=== PATIENT | female | born 1960 | race Caucasian/White ===

== ENCOUNTER → 2019-06-03 | Day surgery (SDC) | payer OTHER ==
[~2019-06-03] MED LIST: BACITRACIN 50,000 UNIT VIAL ONE; BUPIVACAINE HCL 0.5% INJ 30 ML VIAL INJ ONE; CEFAZOLIN SOD 1 GM/NS 50ML 50 ML IV ONE; CEPHALEXIN500 MG PO; CYMBALTA30 MG PO; DEXAMETHASONE SOD PHOS INJ 4 MG/ML VIAL ONE; EPHEDRINE SULFATE INJ 50 MG/10 ML SYR ONE; FENTANYL CITRATE/PF 100MCG/2 ML INJ ONE; GABAPENTIN100 MG PO; HUMULIN R100 UNIT/2 SC; HYDROMORPHONE 2MG/ML 2 MG/ML ML ONE; LIDOCAINE HCL 2% LOCAL INJ 5 ML SDV VIAL INJ ONE; LYRICA75 MG PO; MAGNESIUM OXID400 MG PO; MIDAZOLAM HCL 2 MG/2 ML VIAL ONE; MORPHINE SULFATE INJ 4 MG/ML INJ 1ML ONE; MULTI-VITAMIN1 EACH PO; NAPROXEN500 MG PO; NORCO 10-325 T1 EACH PO; NOVOLIN N100 UNIT/1 SC; OCUVITE TABLET1 EAC1 PO; ONDANSETRON HCL INJ 2MG/ML 2ML 2 MG/ML VIAL ONE; PROPOFOL IV EMULSION 10 MG/ML 20 ML VIAL ONE; SEVOFLURANE INHAL SOLN 250 ML PEN BTL ONE; SOMA350 MG PO; TRAZODONE HCL50 MG PO; VITAMIN D31000 UNI1 PO
--- OUTSIDE RECORDS SUMMARY | 2019-06-03 05:29 | XMS REPORT ---
Author Author [facility] Address Unknown Phone Unavailable Care Team Providers Care Engineering Laboratory Technician Name Role Phone Unavailable Unavailable Payers Payer Name Policy Type Policy Number Effective Date Expiration Date Problems This patient has no known problems. Allergies, Adverse Reactions, Alerts Allergy Name Allergy Type Status Severity Reaction(s) Onset Date Inactive Date Treating Clinician Comments Sulfa (Sulfonamide Antibiotics) DA Active U 2017-01-18 00:00:00 erythromycin base DA Active U 2017-01-18 00:00:00 aripiprazole DA Active U 2017-01-18 00:00:00 Medications This patient has no known medications. Encounters Start Date/Time End Date/Time Encounter Type Admission Type Attending Clinicians Care Facility Care Department Encounter ID 2019-03-05 00:00:00 2019-03-05 00:00:00 Outpatient [facility] [id number] 2019-01-26 00:00:00 2019-01-26 00:00:00 Outpatient [facility] [id number] 2019-01-14 00:00:00 2019-01-14 00:00:00 Outpatient [facility] [id number] 2018-12-30 14:38:10 2018-12-30 14:38:10 Outpatient [facility] [id number] 2018-12-25 13:59:22 2018-12-25 13:59:22 Outpatient [facility] [id number] 2018-12-18 00:00:00 2018-12-18 00:00:00 Outpatient [facility] [id number] 2018-12-16 15:39:27 2018-12-16 15:39:27 Outpatient [facility] [id number] 2018-12-16 14:11:49 2018-12-16 14:11:49 Outpatient [facility] [id number] 2018-12-01 14:39:56 2018-12-01 14:39:56 Outpatient [facility] [id number] 2018-11-13 13:39:08 2018-11-13 13:39:08 Outpatient [facility] [id number] 2018-10-28 13:35:57 2018-10-28 13:35:57 Outpatient [facility] [id number] 2018-10-24 00:00:00 2018-10-24 00:00:00 Outpatient [facility] [id number] 2018-10-21 15:56:16 2018-10-21 15:56:16 Outpatient [facility] [id number] 2018-09-19 00:00:00 2018-09-19 00:00:00 Outpatient [facility] [id number] 2018-09-04 13:39:03 2018-09-04 13:39:03 Outpatient [facility] [id number] 2018-09-04 10:58:33 2018-09-04 10:58:33 Outpatient [facility] [id number] 2018-08-08 00:00:00 2018-08-08 00:00:00 Outpatient [facility] [id number] 2018-08-08 00:00:00 2018-08-08 00:00:00 Outpatient [facility] [id number] 2018-08-04 10:48:12 2018-08-04 10:48:12 Outpatient [facility] [id number] 2018-07-31 14:04:12 2018-07-31 14:04:12 Outpatient [facility] [id number] 2018-07-30 00:00:00 2018-07-30 00:00:00 Outpatient [facility] [id number] 2018-07-23 00:00:00 2018-07-23 00:00:00 Outpatient [facility] [id number] 2018-07-15 00:00:00 2018-07-15 00:00:00 Outpatient [facility] [id number] 2018-07-03 00:00:00 2018-07-03 00:00:00 Outpatient [facility] [id number] 2018-06-23 15:21:44 2018-06-23 15:21:44 Outpatient [facility] [id number] 2018-06-23 13:57:00 2018-06-23 13:57:00 Outpatient [facility] [id number] 2018-06-19 13:13:16 2018-06-19 13:13:16 Outpatient [facility] [id number] 2018-06-04 00:00:00 2018-06-04 00:00:00 Outpatient [facility] [id number] 2018-05-25 00:00:00 2018-05-25 00:00:00 Outpatient [facility] [id number] 2018-05-21 00:00:00 2018-05-21 00:00:00 Outpatient [facility] [id number] 2018-05-20 10:33:25 2018-05-20 10:33:25 Outpatient [facility] [id number] 2018-05-20 00:00:00 2018-05-20 00:00:00 Outpatient [facility] [id number] 2018-05-20 00:00:00 2018-05-20 00:00:00 Outpatient [facility] [id number] 2018-05-20 00:00:00 2018-05-20 00:00:00 Outpatient [facility] [id number] 2018-04-23 00:00:00 2018-04-23 00:00:00 Outpatient [facility] [id number] 2018-04-22 10:28:04 2018-04-22 10:28:04 Outpatient [facility] [id number] 2018-04-22 09:25:05 2018-04-22 09:25:05 Outpatient [facility] [id number] 2018-03-31 00:00:00 2018-03-31 00:00:00 Outpatient [facility] [id number] 2018-03-27 00:00:00 2018-03-27 00:00:00 Outpatient [facility] [id number] 2018-03-27 00:00:00 2018-03-27 00:00:00 Outpatient [facility] [id number] 2018-03-20 00:00:00 2018-03-20 00:00:00 Outpatient [facility] [id number] 2018-03-10 00:00:00 2018-03-10 00:00:00 Outpatient [facility] [id number] 2018-03-10 00:00:00 2018-03-10 00:00:00 Outpatient [facility] [id number] 2018-02-26 15:33:17 2018-02-26 15:33:17 Outpatient [facility] [id number] 2018-02-20 15:28:17 2018-02-20 15:28:17 Outpatient [facility] [id number] 2018-02-13 00:00:00 2018-02-13 00:00:00 Outpatient [facility] [id number] 2018-01-06 00:00:00 2018-01-06 00:00:00 Outpatient [facility] [id number] 2018-01-02 12:58:55 2018-01-02 12:58:55 Outpatient [facility] [id number] 2018-01-02 11:05:28 2018-01-02 11:05:28 Outpatient [facility] [id number] 2017-12-27 00:00:00 2017-12-27 00:00:00 Outpatient [facility] [id number] 2017-12-26 00:00:00 2017-12-26 00:00:00 Outpatient [facility] [id number] 2017-12-25 10:14:01 2017-12-25 10:14:01 Outpatient [facility] [id number] 2017-12-23 00:00:00 2017-12-23 00:00:00 Outpatient [facility] [id number] 2017-12-23 00:00:00 2017-12-23 00:00:00 Outpatient [facility] [id number] 2017-12-16 15:29:25 2017-12-16 15:29:25 Outpatient [facility] [id number] 2017-12-16 14:28:50 2017-12-16 14:28:50 Outpatient [facility] [id number] 2017-12-03 00:00:00 2017-12-03 00:00:00 Outpatient [facility] [id number] 2017-12-03 00:00:00 2017-12-03 00:00:00 Outpatient [facility] [id number] 2017-12-03 00:00:00 2017-12-03 00:00:00 Outpatient [facility] [id number] 2017-11-20 00:00:00 2017-11-20 00:00:00 Outpatient [facility] [id number] 2017-11-13 00:00:00 2017-11-13 00:00:00 Outpatient [facility] [id number] 2017-11-11 00:00:00 2017-11-11 00:00:00 Outpatient [facility] [id number] 2017-11-05 14:08:36 2017-11-05 14:08:36 Outpatient [facility] [id number] 2017-10-25 13:51:04 2017-10-25 13:51:04 Outpatient [facility] [id number] 2017-10-25 00:00:00 2017-10-25 00:00:00 Outpatient [facility] [id number] 2017-10-18 00:00:00 2017-10-18 00:00:00 Outpatient [facility] [id number] 2017-10-17 00:00:00 2017-10-17 00:00:00 Outpatient [facility] [id number] 2017-10-17 00:00:00 2017-10-17 00:00:00 Outpatient [facility] [id number] 2017-10-17 00:00:00 2017-10-17 00:00:00 Outpatient [facility] [id number] 2017-10-11 11:53:22 2017-10-11 11:53:22 Outpatient [facility] [id number] 2017-10-11 10:27:03 2017-10-11 10:27:03 Outpatient [facility] [id number] 2017-07-18 00:00:00 2017-07-18 00:00:00 Outpatient [facility] [id number] 2017-04-25 09:21:52 2017-04-25 09:21:52 Outpatient [facility] [id number] Results Test Description Test Time Test Comments Text Results Atomic Results Result Comments GLUBED 2018-12-06 00:30:00 GLUBED (test code=GLUBED) 106 mg/dL 74-106 Performed by certified veneer jointer operator at [facility] URINALYSIS [id number] 00:22:00* Test Item Value Reference Range Comments UA COLOR (test code=COLU) LIGHT YELLOW YELLOW UA APPEARANCE (test code=APPU) CLEAR CLEAR UA GLUCOSE DIPSTICK (test code=DGLUU) NEGATIVE mg/dL NEGATIVE UA BILIRUBIN DIPSTICK (test code=BILU) NEGATIVE mg/dL NEGATIVE UA KETONE DIPSTICK (test code=KETU) Negative mg/dL NEGATIVE UA SPECIFIC GRAVITY (test code=SGU) 1.011 1.001-1.035 UA BLOOD DIPSTICK (test code=GAUTAM) Negative NEGATIVE UA PH DIPSTICK (test code=CHAPITO) 6.0 5.0-8.0 UA PROTEIN DIPSTICK (test code=PROU) Negative mg/dL NEGATIVE UA UROBILINIOGEN DIPSTICK (test code=URO) NEGATIVE mg/dL NEGATIVE UA NITRITE DIPSTICK (test code=ELIDIA) NEGATIVE NEGATIVE UA LEUKOCYTE ESTERASE W REFLEX (test code=LEUUR) NEGATIVE NEGATIVE UA WBC (test code=WBCU) 0-5 #/HPF 0-5 UA RBC (test code=RBCU) 0-2 #/HPF 0-5 UA EPITHELIAL CELLS (test code=EPIU) FEW per HPF FEW UA MUCUS (test code=MUCU) FEW #/LPF FEW Urine Source? Clean CatchBASIC METABOLIC [id number] 00:18:00* Test Item Value Reference Range Comments SODIUM (test code=NA) 138 mmol/L 136-145 POTASSIUM (test code=K) 3.8 mmol/L 3.5-5.1 CHLORIDE (test code=CL) 103.0 mmol/L 98-107 CARBON DIOXIDE (test code=CO2) 26.0 mmol/L 21-32 ANION GAP (test code=GAP) 12.8 10-20 GLUCOSE (test code=GLU) 168 mg/dL 74-106 BLOOD UREA NITROGEN (test code=BUN) 17 mg/dL 7-18 GLOMERULAR FILTRATION RATE (test code=GFR) 46 mL/min >=60 Estimated GFR by using Modified MDRD formula.Chronic kidney disease is defined as either kidney damageor GFR <60 mL/min/1.73 m2 for >3 months. CREATININE (test code=CREAT) 1.20 mg/dL 0.55-1.02 Note change in reference range due to change in reagent. BUN/CREATININE RATIO (test code=BUN/CREA) 14.4 10-20 CALCIUM (test code=CA) 9.8 mg/dL 8.5-10.1 HEPATIC FUNCTION [id number] 00:18:00* Test Item Value Reference Range Comments TOTAL PROTEIN (test code=PROT) 8.6 gram/dL 6.4-8.2 ALBUMIN (test code=ALB) 3.6 g/dL 3.4-5.0 GLOBULIN (test code=GLOB) 5.0 gram/dL 2.7-4.2 ALBUMIN/GLOBULIN RATIO (test code=A/G) 0.7 0.75-1.50 BILIRUBIN TOTAL (test code=BILT) 0.30 mg/dL 0.0-1.0 BILIRUBIN DIRECT (test code=BILD) 0.14 mg/dL 0.0-0.20 SGOT/AST (test code=AST) 36 IUnit/L 15-37 SGPT/ALT (test code=ALT) 52 IUnit/L 12-78 ALKALINE PHOSPHATASE TOTAL (test code=ALKP) 127 IUnit/L 45-117 Note change in reference range due to change in reagent. CREATINE KINASE (CK)2018-12-06 00:18:00* Test Item Value Reference Range Comments CREATINE KINASE (CK) (test code=CK) 104 IUnit/L 26-208 [id number] 00:18:00* Test Item Value Reference Range Comments TROPONIN-I (test code=TROPI) <0.015 ng/mL 0-0.045 BASIC METABOLIC [id number] 23:53:00* Test Item Value Reference Range Comments SODIUM (test code=NA) 138 mmol/L 136-145 POTASSIUM (test code=K) 3.8 mmol/L 3.5-5.1 CHLORIDE (test code=CL) 103.0 mmol/L 98-107 CARBON DIOXIDE (test code=CO2) mmol/L 21-32 ANION GAP (test code=GAP) 10-20 GLUCOSE (test code=GLU) mg/dL 74-106 BLOOD UREA NITROGEN (test code=BUN) mg/dL 7-18 GLOMERULAR FILTRATION RATE (test code=GFR) mL/min >=60 CREATININE (test code=CREAT) mg/dL 0.55-1.02 BUN/CREATININE RATIO (test code=BUN/CREA) 10-20 CALCIUM (test code=CA) mg/dL 8.5-10.1 HEPATIC FUNCTION [id number] 23:53:00* Test Item Value Reference Range Comments TOTAL PROTEIN (test code=PROT) gram/dL 6.4-8.2 ALBUMIN (test code=ALB) g/dL 3.4-5.0 GLOBULIN (test code=GLOB) gram/dL 2.7-4.2 ALBUMIN/GLOBULIN RATIO (test code=A/G) 0.75-1.50 BILIRUBIN TOTAL (test code=BILT) mg/dL 0.0-1.0 BILIRUBIN DIRECT (test code=BILD) mg/dL 0.0-0.20 SGOT/AST (test code=AST) IUnit/L 15-37 SGPT/ALT (test code=ALT) IUnit/L 12-78 ALKALINE PHOSPHATASE TOTAL (test code=ALKP) IUnit/L 45-117 CREATINE KINASE (CK)2018-12-05 23:53:00* Test Item Value Reference Range Comments CREATINE KINASE (CK) (test code=CK) IUnit/L 26-208 [id number] 23:53:00* Test Item Value Reference Range Comments TROPONIN-I (test code=TROPI) ng/mL 0-0.045 PROTHROMBIN [id number] 23:52:00* Test Item Value Reference Range Comments PROTHROMBIN TIME PATIENT (test code=PTP) 10.2 seconds 9.0-14.0 INTERNATIONAL NORMAL RATIO (test code=INR) 0.9 0.8-1.2 The therapeutic range for oral anticoagulant therapy formost indications is an international normalized ratio (INR)of between 2.0 and 3.0. The recommended therapeutic INRrange for various clinical situations is listed below: Clinical Situation INR range Pulmonary e mbolism treatment (2.0-3.0)Venous thrombosis treatmentVenous thrombosis prophylaxis (high risk surgery)Prevention of systemic embolism from: Acute myocardial infarction Valvular heart disease Atrial fibrillation Mechanical prosthetic heart valves (2.5-3.5) IS PATIENT ON ANTICOAGULANTS? NTHROMBOPLASTIN TIME [id number] 23:52:00* Test Item Value Reference Range Comments THROMBOPLASTIN TIME PARTIAL (test code=PTT) 29.2 seconds 25.0-36.5 IS PATIENT ON ANTICOAGULANTS? NCBC W/AUTO [id number] 23:42:00* Test Item Value Reference Range Comments WHITE BLOOD CELL (test code=WBC) 8.8 K/mm3 4.5-12.5 RED BLOOD CELL (test code=RBC) 4.82 mill/mm3 3.7-5.2 HEMOGLOBIN (test code=HGB) 14.3 gram/dL 11.5-15.5 HEMATOCRIT (test code=HCT) 44.6 % 36.0-46.0 MEAN CELL VOLUME (test code=MCV) 92.5 fL 80-98 MEAN CELL HGB (test code=MCH) 29.7 picogram 27.0-33.0 MEAN CELL HGB CONCETRATION (test code=MCHC) 32.1 gram/dL 33.0-36.0 RED CELL DISTRIBUTION WIDTH (test code=RDW) 13.6 % 11.6-16.2 RED CELL DISTRIBUTION WIDTH SD (test code=RDW-SD) 45.9 fL 37.0-51.0 PLATELET COUNT (test code=PLT) 263 K/mm3 150-450 MEAN PLATELET VOLUME (test code=MPV) 9.5 fL 6.7-11.0 NEUTROPHIL % (test code=NT%) 67.7 % 39.0-69.0 IMMATURE GRANULOCYTE % (test code=IG%) 0.3 % 0.0-5.0 LYMPHOCYTE % (test code=LY%) 24.6 % 25.0-55.0 MONOCYTE % (test code=MO%) 5.8 % 0.0-10.0 EOSINOPHIL % (test code=EO%) 1.1 % 0.0-5.0 BASOPHIL % (test code=BA%) 0.5 % 0.0-1.0 NUCLEATED RBC % (test code=NRBC%) 0.0 % 0-0 NEUTROPHIL # (test code=NT#) 5.97 K/mm3 1.8-7.7 IMMATURE GRANULOCYTE # (test code=IG#) 0.03 x10 3/uL 0-0.03 LYMPHOCYTE # (test code=LY#) 2.17 K/mm3 1.0-5.0 MONOCYTE # (test code=MO#) 0.51 K/mm3 0-0.8 EOSINOPHIL # (test code=EO#) 0.10 K/mm3 0.0-0.5 BASOPHIL # (test code=BA#) 0.04 K/mm3 0.0-0.2 NUCLEATED RBC # (test code=NRBC#) 0.00 K/mm3 0.0-0.1 CBC W/AUTO [id number] 23:41:00* Test Item Value Reference Range Comments WHITE BLOOD CELL (test code=WBC) K/mm3 4.5-12.5 RED BLOOD CELL (test code=RBC) mill/mm3 3.7-5.2 HEMOGLOBIN (test code=HGB) 14.3 gram/dL 11.5-15.5 HEMATOCRIT (test code=HCT) 44.6 % 36.0-46.0 MEAN CELL VOLUME (test code=MCV) fL 80-98 MEAN CELL HGB (test code=MCH) picogram 27.0-33.0 MEAN CELL HGB CONCETRATION (test code=MCHC) gram/dL 33.0-36.0 RED CELL DISTRIBUTION WIDTH (test code=RDW) % 11.6-16.2 RED CELL DISTRIBUTION WIDTH SD (test code=RDW-SD) fL 37.0-51.0 PLATELET COUNT (test code=PLT) K/mm3 150-450 MEAN PLATELET VOLUME (test code=MPV) fL 6.7-11.0 NEUTROPHIL % (test code=NT%) % 39.0-69.0 IMMATURE GRANULOCYTE % (test code=IG%) % 0.0-5.0 LYMPHOCYTE % (test code=LY%) % 25.0-55.0 MONOCYTE % (test code=MO%) % 0.0-10.0 EOSINOPHIL % (test code=EO%) % 0.0-5.0 BASOPHIL % (test code=BA%) % 0.0-1.0 NEUTROPHIL # (test code=NT#) K/mm3 1.8-7.7 LYMPHOCYTE # (test code=LY#) K/mm3 1.0-5.0 MONOCYTE # (test code=MO#) K/mm3 0-0.8 EOSINOPHIL # (test code=EO#) K/mm3 0.0-0.5 BASOPHIL # (test code=BA#) K/mm3 0.0-0.2
--- NOTE | 2019-06-03 06:38 | Diagnostic Imaging Report ---
EXAMINATION: CHEST 2 VIEWS INDICATION: Preop, foot surgery ^PRE-OP #4 ^[id number] ^[id number] COMPARISON: None FINDINGS: PA and lateral views TUBES and LINES: None. LUNGS: Mild hyperinflation and upper lung zone lucencies suggestive of emphysema. There is no evidence of pneumonia or pulmonary edema. PLEURA: No pleural effusion or pneumothorax. HEART AND MEDIASTINUM: The cardiomediastinal silhouette is unremarkable.. BONES AND SOFT TISSUES: Degenerative changes of the spine. No focal osseous lesions. Soft tissues are unremarkable. UPPER ABDOMEN: No free air under the diaphragm. IMPRESSION: COPD/emphysema. No acute cardiopulmonary process. Signed by: Dr. Aruna Davidson MD on 06/03/2019 6:35 AM
[2019-06-03 06:41] LABS: ANION GAP 11.2 mmol/L (8-16); CALCIUM 9.4 mg/dL (8.4-10.2); POTASSIUM 4.2 mmol/L (3.5-5.1)
[2019-06-03 10:05] VITALS: BP 131/78
--- NOTE | 2019-06-11 13:21 | Operative Report ---
DATE OF PROCEDURE: 06/03/2019 SURGEON: Micaela Luna DPM PREOPERATIVE DIAGNOSES: Left hallux rigidus status post failed arthroplasty with implant, left 2nd digit hammertoe, left 3rd digit hammertoe. POSTOPERATIVE DIAGNOSES: Left hallux rigidus status post failed arthroplasty with implant, left 2nd digit hammertoe, left 3rd digit hammertoe. PLANNED PROCEDURES: 1. Left 1st metatarsophalangeal joint arthrodesis with graft implantation. 2. Left 2nd digit arthroplasty, left 3rd digit tenotomy and capsulotomy. PRODUCTION MATERIAL COORDINATOR: Erin Skinner DPM ([place]). ANESTHESIA: General with a postoperative block consisting of 15 mL of 0.5% Marcaine plain. HEMOSTASIS: Pneumatic thigh tourniquet set at 350 mmHg for a total time of approximately 90 minutes. MATERIALS: One [employer] medium cadaveric tricortical wedge, Augment injectable kit 3 mL, one medium 10 degree MTP fusion plate left, one 0.064 K-wire, one 0.045 K-wire, four 2.7 combination locking and nonlocking screws measuring between 12 and 16 mm, 2-0 Vicryl, 3-0 Vicryl, and 4-0 Prolene. ESTIMATED BLOOD LOSS: Less than 10 mL. PATHOLOGY: None. PROCEDURE NOTE: The patient was seen in the preoperative waiting room, where the correct procedure and site was identified. The patient was brought to the operating room and placed on the operating table in a supine position. General anesthesia was initiated. At this time, a well-padded pneumatic tourniquet was placed about the patient's left thigh. The left foot, ankle, and leg was then scrubbed, prepped, and draped in the usual aseptic manner. The left foot, ankle, and leg was exsanguinated with an Esmarch bandage and a pneumatic thigh tourniquet was inflated to 350 mmHg for a total time approximately 90 minutes. Attention was directed to the dorsal aspect of the patient's left 1st metatarsophalangeal joint, where a dorsal dislocation and shortening was noted at the 1st metatarsophalangeal joint with medial deviation at the 2nd and 3rd digit of metatarsophalangeal joint. Utilizing a #15 blade, a 5 cm linear incision made directly over the midshaft 1st metatarsal extending over to the interphalangeal joint. The incision was carried to subcutaneous tissue them from deep or underling structures. All vital neurovascular structures were identified, retracted medially and laterally, and all bleeders were cauterized or ligated as deemed necessary. The incision was carried down to the level of the previously placed implant with grommets and previous implant were noted. Utilizing intraoperative fluoroscopy, they were identified. Utilizing a [place] elevator and hemostat, the grommets and the previously placed implant was removed and passed off to the back table. The wound was then copiously irrigated with sterile saline. Next, measurements were taken of the deficit and the tricortical wedge was cut appropriately and soaked in Augment. The bone edges were trimmed and debrided as well as subchondral drilling was performed. The previous deficits were filled with Augment paste. Next, a contracture was noted at the interphalangeal joint once the MPJ was reduced and the decision was made to perform an IPJ fusion as well. At this time utilizing a sagittal saw, the base of the distal phalanx as well as the head of the proximal phalanx were resected and passed off to the back table and reduced. Next, utilizing a 0.62 K-wire in a retrograde fashion was drilled through the distal phalanx and back into the proximal phalanx. The appropriately cut and sized graft was placed into the metatarsophalangeal joint deficit. The pin was placed through the graft into the 1st metatarsal head and confirmed to be in good position in intraoperative fluoroscopy. Next, the 10 degree revisional metatarsophalangeal joint was placed over the remainder of the 1st metatarsal, the graft, and the proximal phalanx. It was temporally fixated and confirmed to be in correct position via intraoperative fluoroscopy. Four combination locking and nonlocking screws were placed, 2.7 mm between 12 and 16 mm. The fixation site was stable. The wound was then copiously irrigated with sterile saline. Capsule and deep tissue were reapproximated with a combination of 2-0 and 3-0 Vicryl. It should be noted that due to longstanding deformity with dislocation, the skin had remodeled and that the closure was tight. So the closure was done with simple interrupted sutures with 3-0 nylon. Next, attention was directed to the 2nd digit, where a 1.5 cm incision was made directly over the proximal interphalangeal joint. The incision was carried through subcutaneous tissue them from deep or underlying structures. All vital neurovascular structures were identified and retracted medially and laterally, and all bleeders were cauterized or ligated as deemed necessary. The head of the proximal phalanx was resected and passed off to the back table as well as the base of the middle phalanx. A second stab incision was made at the 2nd metatarsophalangeal joint, where tenotomy and capsulotomy was performed. The K-wire was drilled through the middle and distal phalanx back to the proximal phalanx into the metatarsal head confirmed via intraoperative fluoroscopy. Next, utilizing a stab incision, a tenotomy and capsulotomy was performed at the level of the 3rd metatarsophalangeal joint and was noted to be in good anatomic reduction. Both the K-wires were bent and capped. The left 2nd digit incision was copiously irrigated with sterile saline. Deep tissues were reapproximated with 3-0 Vicryl. Skin was closed using simple interrupted sutures with a combination of 3-0 nylon and 4-0 Prolene. The third stab incision was reapproximated with simple interrupted sutures with 4-0 Prolene. All incision sites were then dressed with 4x4s, Kerlix, Dimitris wrap, and a postop shoe. The patient tolerated the procedure and anesthesia well. The patient was discharged to the postop recovery room with vital signs stable and vascular status intact. The patient was then discharged to home with the following written and oral instructions: 1. Keep the dressing clean, dry, and intact. 2. The patient is to remain nonweightbearing to the left lower extremity and to avoid any ambulation until being seen in the office. 3. The patient was given the office number and instructed to contact us if any problems arise. The patient has a postoperative appointment scheduled for 2 days. ROMULO Nichole/RANJANA /[phone]
== END | disposition home or self-care (01) ==
LOC: OR 05:16
PROVIDERS: ATTEND Podiatrist Foot & Ankle Surgery
DX: M20.22 Hallux rigidus, left foot (principal); M20.42 Other hammer toe(s) (acquired), left foot; E11.9 Type 2 diabetes mellitus without complications; B19.20 Unspecified viral hepatitis C without hepatic coma; F41.9 Anxiety disorder, unspecified; F17.210 Nicotine dependence, cigarettes, uncomplicated; Z88.1 Allergy status to other antibiotic agents; Z88.2 Allergy status to sulfonamides; Z88.8 Allergy status to other drugs, medicaments and biological substances; Z79.4 Long term (current) use of insulin
CPT/HCPCS: 28270 ×2; 28285; 28750; 36415; 71046; 80048; 82948; 93005; C1713 ×9; J0690; J1100; J1170; J2001; J2250; J2270; J2405; J2704; J3010

== ENCOUNTER 2019-09-09 06:09 | Inpatient (IN) | payer OTHER ==
--- NOTE | 2019-09-07 11:51 | Diagnostic Imaging Report ---
Chest, PA and lateral. History: Preoperative evaluation for foot surgery. Comparison: 07/20/2019. Discussion: The cardiomediastinal silhouette and pulmonary vasculature are within normal limits. The lungs are clear without evidence of consolidation or effusion. Left upper extremity PICC tip terminates in the distal SVC. There are no acute osseous abnormalities. IMPRESSION: No radiographic evidence of acute cardiopulmonary abnormality. Signed by: Darrick Bond MD on 09/07/2019 11:48 AM
[2019-09-07 12:08] LABS: ANION GAP 11.9 mmol/L (8-16); CALCIUM 9.5 mg/dL (8.4-10.2); CREATININE, SERUM 0.98 mg/dL (0.57-1.11); POTASSIUM 3.9 mmol/L (3.5-5.1)
[~2019-09-09] VITALS: Ht 160 cm; Wt 77.9 kg
[~2019-09-09 06:09] MED LIST changes: -BACITRACIN 50,000 UNIT VIAL ONE; -BUPIVACAINE HCL 0.5% INJ 30 ML VIAL INJ ONE; -CEFAZOLIN SOD 1 GM/NS 50ML 50 ML IV ONE; -DEXAMETHASONE SOD PHOS INJ 4 MG/ML VIAL ONE; -EPHEDRINE SULFATE INJ 50 MG/10 ML SYR ONE; -FENTANYL CITRATE/PF 100MCG/2 ML INJ ONE; -HYDROMORPHONE 2MG/ML 2 MG/ML ML ONE; -LIDOCAINE HCL 2% LOCAL INJ 5 ML SDV VIAL INJ ONE; -MIDAZOLAM HCL 2 MG/2 ML VIAL ONE; -MORPHINE SULFATE INJ 4 MG/ML INJ 1ML ONE; -ONDANSETRON HCL INJ 2MG/ML 2ML 2 MG/ML VIAL ONE; -PROPOFOL IV EMULSION 10 MG/ML 20 ML VIAL ONE; -SEVOFLURANE INHAL SOLN 250 ML PEN BTL ONE
[2019-09-09] MEDS ORDERED: CEFAZOLIN SOD 1 GM/NS 50ML 50 ML IV ONE (06:49)
[2019-09-09] MEDS ORDERED: INSULIN REGULAR, HUMAN 100 UNIT/1 ML 3ML VIAL ONE (07:04)
--- NOTE | 2019-09-09 07:15 | NUR ---
SPIRITUAL CARE - Pre-Surgery Assessment: Pt is "scared" that she may need an amputation. Pt expressed emotions thru words and tears. Intervention: I provided pastoral presence, hospitality, sympathetic listening, and prayer. I acquainted pt with availability of obstetrician while hospitalized. Outcome: Pt expressed appreciation for visit. Will follow as able. MARCEL KELLY Montessori Paraprofessional Spiritual Care Department O: [phone] Pager: [phone] ([phone] number calling from)
[2019-09-09] MEDS ORDERED: DEXAMETHASONE SOD PHOS INJ 4 MG/ML VIAL ONE ×2 (07:33→13:46)
[2019-09-09] MEDS ORDERED: BUPIVACAINE HCL 0.5% INJ 30 ML VIAL INJ ONE (07:33)
[2019-09-09] MEDS ORDERED: BACITRACIN 50,000 UNIT VIAL ONE (07:47)
[2019-09-09] MEDS ORDERED: FENTANYL CITRATE/PF 100MCG/2 ML INJ ONE (09:00)
[2019-09-09 10:26] VITALS: BP 121/62
[2019-09-09 10:39] VITALS: BP 121/62
--- NOTE | 2019-09-09 10:39 | NUR ---
The pt. was received from PACU s/p removal of hardware to the left ankle. She presents with nirmal wrapped foot and the dressing is dry and intact. She reports that the dressing is too tight and is fingering and manipulating the bandage. She was advised that the dressing is not tight but the feeling in the foot is returning and this account for feeling of edema. The pt. was advised to refrain from manipulating the dressing. The foot is elevated on pillows.
[2019-09-09] MEDS ORDERED: MELATONIN 5 MG TABLET PO PRN (11:45)
[2019-09-09] MEDS ORDERED: ACETAMINOPHEN 325 MG TAB PO PRN (11:45)
[2019-09-09] MEDS ORDERED: DEXTROSE 50% SYRINGE 50 ML IV PRN (11:45)
[2019-09-09] MEDS ORDERED: HYDROCODONE/APAP 5MG-325MG TAB PO PRN (11:45)
[2019-09-09] MEDS ORDERED: ONDANSETRON HCL INJ 2MG/ML 2ML 2 MG/ML VIAL IV PRN (11:45)
[2019-09-09 12:13] LABS: BASOPHILS % 0.4 % (0.0-1.0); EOSINOPHILS # (AUTO) 0.1 (0.0-0.4); HEMATOCRIT 35.3 % (34.2-44.1); HEMOGLOBIN 11.5 g/dL (12.0-16.0); LYMPHOCYTES # (AUTO) 1.5 (1.0-3.2); LYMPHOCYTES % 17.3 % (18.0-39.1); MEAN CORPUSCULAR HEMOGLOBIN 28.8 pg (28-32); MEAN CORPUSCULAR HGB CONC 32.6 g/dL (31-35); MEAN CORPUSCULAR VOLUME 88.3 fL (81-99); MONOCYTES # (AUTO) 0.2 (0.2-0.8); MONOCYTES % 2.7 % (4.4-11.3); NEUTROPHILS % 78.4 % (38.7-80.0); PLATELET COUNT 297 x10e3/uL (140-360); RED CELL DISTRIBUTION WIDTH 13.4 % (11.7-14.4)
--- NOTE | 2019-09-09 12:31 | NUR ---
CM placed call to Clarissa Laurent [facility] at [phone] to discuss benefits for pt. Left VM. Awaiting call back.
[2019-09-09 12:32] LABS: ANION GAP 14.5 mmol/L (8-16); CALCIUM 9.3 mg/dL (8.4-10.2); CREATININE, SERUM 1.06 mg/dL (0.57-1.11); POTASSIUM 4.5 mmol/L (3.5-5.1)
[2019-09-09] MEDS: HYDROMORPHONE 1MG/1ML INJ IV PRN ×2 (12:46→18:00)
--- NOTE | 2019-09-09 12:50 | History and Physical ---
CHIEF COMPLAINT: Status post removal of hardware on the left foot. HISTORY OF PRESENT ILLNESS: A 58-year-old female, history of type 2 diabetes, left foot osteomyelitis in the past, multiple operations in the left foot, anxiety, and insomnia, presented as a direct admission after undergone status post left foot hardware removed today by Dr. Luna, Podiatry. The patient was admitted after the surgery to the medical floor. The patient reports she has been dealing with this left foot, nonhealing surgical wound, and underlying osteomyelitis for significant period of time. The patient was seen and evaluated at bedside on the medical floor. She is currently doing well postoperatively. Her vital signs were stable when I evaluated her. She has no other complaints at this time. Pain is well controlled during my evaluation. REVIEW OF SYSTEMS: Pertinent positive: Left foot wound infection, now status post hardware removal. Pertinent negatives: Denies any chest pain, palpitation, nausea, vomiting, diarrhea, dysuria, hematuria, frequency, urgency, lightheadedness, dizziness, abdominal pain, headaches, shortness of breath, cough, congestion, fever, or any other complaints. The rest of the 14-point review of systems are reviewed with the patient and are negative. ALLERGIES: SULFA. HOME MEDICATIONS: See medication reconciliation form once they are available. She does take insulin for home for diabetes. PAST MEDICAL HISTORY: She has hypertension, type 2 diabetes, and left foot osteomyelitis with multiple surgeries. PAST SURGICAL HISTORY: Left foot surgery in the past several times. FAMILY HISTORY: Hypertension and diabetes. SOCIAL HISTORY: No drugs. No alcohol. Does not smoke. Good social support. She is not . PHYSICAL EXAMINATION: VITAL SIGNS: Temperature is 96.5, pulse 85, respiratory rate is 20, blood pressure 121/62, and pulse ox 97% on room air. GENERAL: Not in acute distress. Alert and oriented x3. Cooperative on examination. HEENT: Head; normocephalic, atraumatic. Eyes; pupils are equal, round, and reactive to light bilaterally. Extraocular movements intact bilaterally. Throat; no evidence of erythema or exudates in the posterior pharynx. Has poor dentition. NECK: Supple. Good range of motion. PULMONARY: Clear to auscultation bilaterally. No wheezing, no rales, no rhonchi, no crackles appreciated. CARDIOVASCULAR: Positive S1 and S2. No murmurs, rubs, or gallops appreciated. ABDOMEN: Soft, nondistended, and nontender to palpation. Bowel sounds present. MUSCULOSKELETAL: Strength is 5/5 throughout. No evidence of any muscle deficits on examination. No weakness appreciated. NEUROLOGIC: Cranial nerves II through XII grossly intact. No evidence of any neurological deficits on exam. SKIN: Intact. Warm to touch. Good cap refill. PSYCHIATRIC: Normal affect and mood. EXTREMITIES: The left foot is currently wrapped. Hardware was removed today by Podiatry. LABORATORY FINDINGS: Just a CBC is not available at this time. Chemistry from 09/07/2019, shows sodium 138, potassium 3.9, chloride 104, bicarb is 26, anion gap of 11, BUN is 17, creatinine is 0.98, glucose is 73, calcium is 9.5. Point of care glucose is 230. Repeat chemistry is pending. MICROBIOLOGY: Wound cultures are pending. IMAGING STUDIES: Chest x-ray on 09/07/2019, shows no radiographic evidence of acute cardiopulmonary abnormality. IMPRESSION: 1. Status post left foot hardware removal performed by Podiatry. 2. Left foot osteomyelitis with underlying cellulitis. 3. Type 2 diabetes with neuropathy. 4. Anxiety. 5. History of insomnia. PLAN: At this time, continue with postop care. Hardware has been removed. The patient will likely need some sort of placement, which I already discussed this with Case Management. IV antibiotics. I am not sure what she was on at home, as the patient does not know. I did consult the patient's Infectious Disease doctor to come, evaluate her and initiate the antibiotics accordingly. I will start her on insulin sliding scale. Resume her same home medications once they are available. I did add IV Dilaudid for pain, as she is complaining of occasional pain on and off with oral [place] as needed. I will put her on Lovenox for DVT prophylaxis. Overall, I did consult with Podiatry and Infectious Disease to come, evaluate and treat her while she is here. Otherwise, the patient states she is doing well. We will put on a diabetic diet as well and monitor her very closely. MD DEVANG Garcia/RANJANA /[id number]
[2019-09-09] MEDS ORDERED: PROPOFOL IV EMULSION 10 MG/ML 20 ML VIAL ONE (13:46)
[2019-09-09] MEDS ORDERED: LIDOCAINE HCL 2% LOCAL INJ 5 ML SDV VIAL INJ ONE (13:46)
[2019-09-09] MEDS ORDERED: SEVOFLURANE INHAL SOLN 250 ML PEN BTL ONE (13:46)
[2019-09-09] MEDS ORDERED: ONDANSETRON HCL INJ 2MG/ML 2ML 2 MG/ML VIAL ONE (13:46)
[2019-09-09] MEDS ORDERED: CEFEPIME HCL 2 GM VIAL IV SCH (15:30)
[2019-09-09 15:48] VITALS: BP 146/67
--- NOTE | 2019-09-09 15:58 | Operative Report ---
DATE OF PROCEDURE: 09/09/2019 SURGEON: Micaela Luna DPM PREOPERATIVE DIAGNOSES: 1. Left painful hardware. 2. Left postoperative wound dehiscence. 3. Left foot osteomyelitis. PLANNED PROCEDURE: Left removal of hardware. REPAIRER TYPEWRITER: Erin Skinner DPM (Charley). ANESTHESIA: General with a postoperative block consisting of 10 mL of 0.5% Marcaine plain. HEMOSTASIS: Pneumatic thigh tourniquet set at 350 mmHg for a total time of approximately 15 minutes. MATERIALS: 3-0 nylon. ESTIMATED BLOOD LOSS: Less than 10 mL. PATHOLOGY: Anaerobic and aerobic cultures sent for gross specimen. Infected hardware removed to be sent for culture. PROCEDURE NOTE: The patient was seen in the preoperative waiting room, where the correct procedure and site were identified. The patient was brought to the operating room and placed on the operating table in the supine position. General anesthesia was initiated. At this time, a well-padded pneumatic tourniquet was placed about the patient's left thigh. The left foot, ankle, and leg was then scrubbed, prepped, and draped in the usual aseptic manner. The left foot, ankle, and leg was exsanguinated with an Esmarch bandage and the pneumatic thigh tourniquet was inflated to 350 mmHg for a total time of approximately 15 minutes. Attention was directed to the dorsal aspect of the patient's left 1st metatarsophalangeal joint, where a dehisced wound was noted distally with fibrotic tissue and mild drainage. Utilizing a 15 blade, the incision was made directly over the previous incision site down to the level of the 1st metatarsophalangeal joint and the hardware was encountered. The dissection was carried proximally and distally to allow for good visualization of the distal and proximal ends of the plate. Utilizing a Paperless Post 15 [employer]ified Network Professional, all 5 screws were removed followed by the plate. This was confirmed via intraoperative fluoroscopy. The wound was then copiously irrigated with sterile saline mixed with bacitracin and wound cultures were taken at this time. The hardware was sent for culture. At this point, the wound was copiously irrigated with sterile saline mixed with bacitracin and partially reapproximated utilizing simple interrupted sutures with 3-0 nylon. The distal end of the wound was not able to be fully reapproximated and will plan to heal via secondary intention. We will closely monitor postoperatively to determine if wound VAC needs to be applied. The patient tolerated the procedure and anesthesia well, was transferred to the postoperative recovery unit with vital signs stable and vascular status intact. The patient was monitored there for a short period of time before being admitted to the floor for postoperative monitoring, pain control, IV antibiotics, and possible transfer to LTAC or assisted facility. The Podiatry Service will continue to monitor as inpatient with dressing changes. ROMULO Nichole/MODL /[id number]
[2019-09-09] MEDS ORDERED: INSULIN REGULAR, HUMAN 100 UNIT/1 ML 3ML VIAL SQ PRN (16:00)
--- NOTE | 2019-09-09 16:00 | NUR ---
The pt's blood glucose is elevated 484 and I spoke with Dr. Steinberg for orders. Insulin ordered and given. The pt asked what type insulin and I mispoke stating Nph but gave reg.
[2019-09-09] MEDS: CEFEPIME 2 GM/NS 0.9% 100 ML 100 ML IV SCH (16:06)
[2019-09-09] MEDS: ENOXAPARIN SOD INJ 40 MG/0.4 ML SYR SC SCH ×2 (17:41→19:11)
--- NOTE | 2019-09-09 18:00 | NUR ---
The pt. is crying and comp of headache. She is stressing stating the dr. had not seen her and she was advised that the dr did indeed come to see her shortly after she returned from surgery. She reports her med pass is messed up and that she is not above leaving as she has done so before. She was reassured that the dr. will take care of her needs.
[2019-09-09] MEDS ORDERED: INSULIN REGULAR, HUMAN 100 UNIT/1 ML 3ML VIAL SQ ONE (18:45)
--- NOTE | 2019-09-09 19:10 | NUR ---
Complete nursing report with morning nurse. Pt alert and oriented to name sitting on couch with foot elevated. Denies pain at this time. Gave Pt walker standby assist, informed NWB to right foot. Call light within reach. Will continue to monitor.
--- NOTE | 2019-09-09 19:28 | Consultation ---
DATE OF CONSULTATION: 09/09/2019 REASON FOR CONSULTATION: Left foot. HISTORY OF PRESENTING ILLNESS: This is a 58-year-old female with past medical history of type 2 diabetes, anxiety, and hypertension, who is well known to the Podiatry Service. The patient had multiple procedures done to her left foot prior to seeing me, but left her with a dorsally contracted nonfunctional left hallux. The patient underwent a revisional arthrodesis to the left 1st metatarsophalangeal joint on 06/03/2019. Her postoperative course was complicated by the fact that she developed a wound dehiscence and was admitted to [facility] on 07/20/2019, where she was started with a PICC line and was discharged with the wound care instructions, home health, and IV antibiotics. The patient has been noncompliant with postoperative instructions including premature weightbearing. The patient has a history of missing her postop followup appointments due to social issues, unable to have rides back and forth to the clinic. The patient was seen by me in the office on 09/04/2019, most recently and x-rays were taken at that point, which revealed questionable osteolytic changes to the distal phalanx of the left hallux. The decision was made to remove all hardware and have the patient be admitted to the hospital postoperatively. The patient underwent a hardware removal this morning on 09/09/2019, with a partial wound closure. The patient was seen postoperatively in the PACU and was noted to be in no apparent distress and pain was well controlled. REVIEW OF SYSTEMS: The patient currently denies nausea, vomiting, fever, chills, chest pain, or shortness of breath. PHYSICAL EXAMINATION: GENERAL: Alert and oriented x3, in no apparent distress. VITAL SIGNS: Today, temperature 96.5, heart rate 85, respiratory rate 20, blood pressure 121/62, and pulse ox is 97% on room air. PROBLEM FOCUSED LOWER EXTREMITY PHYSICAL EXAM: VASCULAR: Dorsalis pedis pulse is faintly palpable. Posterior tibial pulse is faintly palpable. Capillary refill time is 3 to 5 seconds to all digits of the left lower extremity. Mild periwound erythema, edema, and warmth is noted to the left 1st metatarsophalangeal joint. NEUROLOGICAL: Sensation is diminished to light touch bilateral. MUSCULOSKELETAL: Fusion of the left 1st metatarsophalangeal joint, pain on palpation. DERMATOLOGICAL: Postsurgical wound dehiscence of the left 1st metatarsophalangeal joint with all removed hardware, partial delayed primary closure to the left foot and incision site with approximately 1.5 cm x 1.5 cm open area to the distal aspect of the left hallux proximal phalangeal joint. Periwound erythema, edema, and warmth are noted. No active drainage was present. LABORATORY DATA: White blood cell count is 8.9, hemoglobin 11.5, hematocrit 35.3, and platelet count 297. Neutrophil percentage is 78.4. Sodium 136, potassium 4.5, chloride 105, CO2 21, BUN 24, creatinine 1.06, and glucose 346. ASSESSMENT: 1. Left foot postoperative wound dehiscence, left foot osteomyelitis. 2. Left foot painful hardware. 3. Type 2 diabetes, peripheral neuropathy. 4. Hypertension. PLAN: The patient was seen and evaluated. Discussed condition, x-rays, and treatment options with the patient in detail. At this time, all hardware was removed from the left foot operative site. The hardware was sent to be cultured. Deep cultures were taken intraoperatively. The patient has a PICC line placed since July 20, 2019, and was doing wound care with home health. However, per the patient, the home health was unreliable and was not getting her antibiotics consistently or doing the wound care consistently. As discussed previously, the patient has a history of noncompliance with weightbearing instructions as well as followup appointments and consistently missed followup appointments due to inability to obtain transportation to postoperative clinic visits. The patient also continues to smoke. At this time, recommend continued IV antibiotics per Infectious Disease. Based on the patient's wound dehiscence, osteomyelitis, and social issues, would recommend transfer to a long-term acute care or intermediate facility based on the patient's benefits. The Podiatry Service will continue to monitor as an inpatient. ROMULO Nichole /[id number]
[2019-09-09] MEDS ORDERED: MIDAZOLAM HCL 2 MG/2 ML VIAL ONE (19:57)
[2019-09-09 20:00] VITALS: BP 147/66
[2019-09-09 21:00] VITALS: BP 147/66
[2019-09-09] MEDS: INSULIN REGULAR, HUMAN 100 UNIT/1 ML 3ML VIAL SQ SCH (21:00)
--- NOTE | 2019-09-09 23:40 | Consultation ---
DATE OF CONSULTATION: 09/09/2019 REASON FOR CONSULTATION: Osteomyelitis of the foot. HISTORY OF PRESENT ILLNESS: This patient who is known to me from before. She is a very pleasant 58-year-old white female, who has history of diabetes mellitus type 2 with neuropathy, left foot osteomyelitis in the past, multiple surgeries of the left foot. She does have anxiety. The patient recently had a hardware placement, the wound dehisced. She was given IV antibiotic for few weeks and she was transferred to [facility] care facility, where she was getting her antibiotic. However, the wound continued to dehisced and drained. According to her, so she was brought here. Dr. Luna admitted, the patient underwent removal of her hardware. The patient underwent surgery today. Please refer to the description. I am asked to see her. She is currently on cefepime. PAST MEDICAL HISTORY: As above. PAST SURGICAL HISTORY: As above. SOCIAL HISTORY: There is no smoking, drug abuse, or alcohol abuse currently. ALLERGIES: SULFA. FAMILY HISTORY: Diabetes mellitus and neuropathy. REVIEW OF SYSTEMS: HEENT: Negative. PULMONARY: Negative. CARDIAC: Negative. LABORATORY DATA: Her white count is 8.9, hemoglobin of 4. Sodium 138, potassium 3.9. PHYSICAL EXAMINATION: GENERAL: She is alert, oriented, does not seem acute distress. VITAL SIGNS: Stable, currently afebrile. HEENT: She is not icteric. NECK: Supple. CHEST: Clear. HEART: S1, S2. ABDOMEN: Soft, bowel sounds present. No tenderness. EXTREMITIES: No edema. SKIN: No rash. The wound is clean, dressing is clean. LABORATORY DATA: Reviewed. Chart reviewed. Her previous chart also reviewed. She was here back in June, at that time, she grew E coli . IMPRESSION: 1. Osteomyelitis of the foot. 2. Diabetes mellitus with neuropathy. 3. Continue with cefepime, obtain sedimentation rate, C-reactive protein, culture was sent. Continue with local care. 4. Diabetes mellitus to be controlled. 5. Discussed with medical team. We will follow. MD SONIA Gupta/RANJANA /[id number]
[2019-09-10] VITALS (8 sets, daily range): BP systolic 103–167; BP diastolic 52–73
[2019-09-10] MEDS: CEFEPIME 2 GM/NS 0.9% 100 ML 100 ML IV SCH ×2 (03:27→16:17)
[2019-09-10] MEDS: DEXTROSE 50% SYRINGE 50 ML IV PRN ×2 (04:45→20:05)
--- NOTE | 2019-09-10 04:45 | NUR ---
BS dropped 47, Pt lethargic and talking slowly. Admin D50 via left PICC.
[2019-09-10] MEDS: HYDROMORPHONE 1MG/1ML INJ IV PRN ×3 (05:00→16:20)
--- NOTE | 2019-09-10 05:26 | NUR ---
Pt lucid, easy to understand, BS increased 182. No acute distress noted.
[2019-09-10 05:43] LABS: BASOPHILS # (AUTO) 0.1 (0.0-0.1); BASOPHILS % 0.6 % (0.0-1.0); EOSINOPHILS # (AUTO) 0.3 (0.0-0.4); HEMATOCRIT 34.6 % (34.2-44.1); LYMPHOCYTES # (AUTO) 3.2 (1.0-3.2); LYMPHOCYTES % 33.1 % (18.0-39.1); MEAN CORPUSCULAR HEMOGLOBIN 28.1 pg (28-32); MEAN CORPUSCULAR HGB CONC 31.8 g/dL (31-35); MEAN CORPUSCULAR VOLUME 88.5 fL (81-99); MONOCYTES # (AUTO) 0.9 (0.2-0.8); MONOCYTES % 9.7 % (4.4-11.3); NEUTROPHILS # (AUTO) 5.1 (2.1-6.9); NEUTROPHILS % 53.3 % (38.7-80.0); PLATELET COUNT 311 x10e3/uL (140-360); RED BLOOD COUNT 3.91 x10e6/uL (3.6-5.1); RED CELL DISTRIBUTION WIDTH 13.4 % (11.7-14.4)
[2019-09-10 05:56] LABS: ANION GAP 12.7 mmol/L (8-16); BLOOD UREA NITROGEN 23 mg/dL (7-26); BUN/CREATININE RATIO 27 (6-25); CALCIUM 9.3 mg/dL (8.4-10.2); CARBON DIOXIDE 25 mmol/L (22-29); CHLORIDE 101 mmol/L (98-107); CREATININE, SERUM 0.85 mg/dL (0.57-1.11); EST GLOMERULAR FILTRATION RATE > 60 ML/MIN (60-); GLUCOSE 208 mg/dL (74-118); POTASSIUM 3.7 mmol/L (3.5-5.1); SODIUM 135 mmol/L (136-145)
--- NOTE | 2019-09-10 07:00 | NUR ---
Dr. Steinberg called to inform of BS levels, unable to leave a message, morning nurse aware. Pt lying in bed pain decreased, no acute distress noted.
--- NOTE | 2019-09-10 08:30 | NUR ---
Called Clarissa Laurent with [facility] again at [phone] to discuss benefits. Left for callback
[2019-09-10] MEDS: INSULIN REGULAR, HUMAN 100 UNIT/1 ML 3ML VIAL SQ SCH ×3 (10:39→16:39)
--- NOTE | 2019-09-10 10:57 | Progress Note ---
DATE: 09/10/2019 SUBJECTIVE: This is a 58-year-old female with past medical history of type 2 diabetes, anxiety, and hypertension, who is postoperative day #1 left foot infected hardware removal with wound dehiscence. The patient is seen at bedside this morning. She relates to intermittent pain, but is in no acute distress and appears comfortable at the moment. The patient currently denies nausea, vomiting, fever, chills, chest pain, or shortness of breath. PHYSICAL EXAMINATION: GENERAL: Alert and oriented x3, in no apparent distress. VITAL SIGNS: Today, temperature 97.8, heart rate 86, respiratory rate 13, blood pressure 155/72, and pulse ox is 98% on room air. PROBLEM FOCUSED LOWER EXTREMITY PHYSICAL EXAM: VASCULAR: Dorsalis pedis and posterior tibial pulses are faintly palpable. Capillary refill time is less than 3 seconds in all remaining digits. Reduction in erythema, edema, and warmth to the left 1st metatarsophalangeal joint. NEUROLOGICAL: Sensation is diminished to light touch bilateral. MUSCULOSKELETAL: Fusion of the left 1st metatarsophalangeal joint. Mild pain on palpation is noted. DERMATOLOGICAL: Previous surgical site wound is noted. Approximately 80% of the wound is well coapted with simple interrupted sutures and no evidence of wound dehiscence is noted. The distal 20% of the wound was not fully closed with primary intention due to inadequate soft tissue. We will closely monitor. Improvement in periwound local acute signs of infection. LABORATORY DATA: White blood cell count is 9.6, hemoglobin 11.0, hematocrit 34.6, and platelet count 311. Sodium 135, potassium 3.7, chloride 101, CO2 25, BUN 23, creatinine 0.85, and glucose 208. ASSESSMENT: 1. Left foot postoperative wound dehiscence with osteomyelitis postoperative day #1, left foot painful hardware removal. 2. Type 2 diabetes, peripheral neuropathy. 3. Hypertension. PLAN: The patient was seen and evaluated. Discussed condition and treatment options with the patient in detail. At this time, dressing change was performed with Betadine wet-to-dry. We will continue daily dressing changes with Betadine wet-to-dry at this time to monitor the distal aspect of the wound. At this time, we will continue IV cefepime based on outpatient cultures, however, inpatient cultures are pending and show no organisms at this time. Appreciate Infectious Disease consultation. I had a lengthy discussion with case management about the patient's status as far as placement. Discussed with them that the patient has a difficulty with showing up for appointments and doing activities of daily living at home. She has a history of noncompliance with weightbearing instructions, wound care, and IV antibiotics. Recommendation would be for placement in a long-term acute care or fpc facility dependent on the patient's insurance privileges. The Podiatry Service will continue to monitor as an inpatient. ROMULO Nichole/MODL /[id number]
--- NOTE | 2019-09-10 11:50 | NUR ---
ASSESSMENT: Spiritual distress Pt anxious to return home. Pt states she wants to be discharged so she can see her pet cat, son and children in her neighborhood. Intervention: Provided unhurried pastoral presence and facilitated storytelling. Outcome: No need to follow at this time. MARCEL KELLY [employer] [facility] Spiritual Care Department O: [phone] Pager: [phone] ([phone] number calling from)
[2019-09-10] MEDS ORDERED: SODIUM CHLORIDE 0.9% 250ML 250 ML ONE (16:20)
[2019-09-10] MEDS: ENOXAPARIN SOD INJ 40 MG/0.4 ML SYR SC SCH (16:37)
--- NOTE | 2019-09-10 16:53 | Progress Note ---
DATE: 09/10/2019 Medicine Progress Note SUBJECTIVE: The patient is doing well. She is wanting to go home. Despite she has significant much more work, she is still planning to go home. She has a history of doing this in the past as well. LABORATORY FINDINGS: Show white count 9.6, hemoglobin 11, hematocrit is 34.6, platelets of 311. Chemistry; sodium 135, potassium 3.7, chloride 101, bicarb 25, anion gap is 12, BUN is 28, creatinine is 0.85, glucose is 208, calcium 9.3, CRP is pending. Microbiology wound cultures are pending, but no organism seen. IMAGING STUDIES: None. PHYSICAL EXAMINATION: General: Not in acute distress. Alert and oriented x3. Cooperative on examination. VITAL SIGNS: Temperature 97.8, pulse 86, respiratory rate is 13, blood pressure 167/73, and pulse ox 98% on room air. HEENT: Normocephalic, atraumatic. Eyes; pupils are equal, round, and reactive to light bilaterally. Extraocular movements intact bilaterally. Throat; no evidence of erythema or exudates in the posterior pharynx. Has poor dentition. NECK: Supple. Good range of motion. PULMONARY: Clear to auscultation bilaterally. No wheezing, rales, or rhonchi. No crackles appreciated. CARDIOVASCULAR: Positive S1, S2. No murmurs, rubs, or gallop appreciated. ABDOMEN: Soft, nontender, nondistended to palpation. Bowel sounds present. MUSCULOSKELETAL: Strength is 5/5 throughout. No evidence of any muscle deficits on examination. No weakness appreciated. NEUROLOGIC: Cranial nerves II through XII were grossly intact. No evidence of any neurological deficits on exam. SKIN: Intact. Warm to touch. Good cap refill. PSYCHIATRIC: Normal affect and mood. EXTREMITIES: No edema. Good range of motion throughout. IMPRESSION: 1. Status post left foot hardware removal performed by Podiatry, 09/09/2019. 2. Left foot osteomyelitis with underlying cellulitis. 3. Type 2 diabetes with neuropathy. 4. Anxiety. 5. History of insomnia. PLAN: At this time, continue with postop care. Podiatry recommendations noted. Wants long-term placement, but I do not think she has the hospital insurances that will allow her to go to a fpc facility or an LTAC. She is very eager to go home today. I do not feel like she is ready to go home. She will continue with IV antibiotics for now. Postop care. ID has been consulted. We are still waiting on the med reconciliation to be performed by the nursing staff in order for us to reconcile all her home medications. She is on a sliding scale for her diabetes. Once her medications are available, we will go ahead and resume them now and get a.m. labs. We will try to convince the patient to stay here longer despite she has been threatening to leave against medical advice. Otherwise, we will continue same plan of care and monitor closely. MD DEVANG Garcia/RANJANA /[id number]
[2019-09-10] MEDS ORDERED: ONDANSETRON HCL 4 MG ORAL DISINTEGRATING TAB PO PRN (17:15)
--- NOTE | 2019-09-10 19:20 | NUR ---
Report received from morning nurse. Pt ambulating with walker from bathroom. Denies pain or discomfort at this time. Will continue to monitor.
--- NOTE | 2019-09-10 19:55 | NUR ---
Nurse informed by PCT decreased BS 36. Pt diaphoretic and slurring words. PCT remained in room while nurse obtain D50. D50 admin via left PICC. After admin Pt becomes loud by yelling, "I want to go home". Pt wants to dictate medications she's given at the hospital. Informed Pt will contact doctor of her concerns.
--- NOTE | 2019-09-10 20:24 | NUR ---
Spoke with Dr. Steinberg and informed about Pt's decreased BS and current mood and behavior, stated will not be discharging patient until cleared by podiatry. Dr. Steinberg ordered to restart home meds: Lyrica, Trazodone, and Cymbalta. Ordered CBC, CMP, and A1C for AM. Call Dr. Steinberg with results of BS.
--- NOTE | 2019-09-10 20:29 | NUR ---
Pt's BS 97. Charge Nurse and Account Manager Employee Benefits talking to Pt as Dr. Steinberg ordered regarding if Pt is self admin own insulin and how harmful any medications given not ordered.
[2019-09-10] MEDS ORDERED: TRAZODONE HCL 50 MG TAB PO PRN (20:30)
[2019-09-10] MEDS ORDERED: DULOXETINE HCL 30 MG DELAYED RELEASE PO SCH (21:00)
[2019-09-10] MEDS ORDERED: PREGABALIN 75 MG CAP PO SCH (21:00)
--- NOTE | 2019-09-10 21:30 | NUR ---
Pt leaves AMA after being told the risks from charge nurse and house worker general.
--- NOTE | 2019-09-10 21:50 | NUR ---
Dr. Steinberg notified of Pt leaving AMA.
--- NOTE | 2019-09-11 11:00 | NUR ---
Pt left AMA yesterday evening. CM had received order for home IV abx. CM placed call to pt at [phone]. She stated that she has spoken with Dr. Luna and was told he wants her on the abx. Gave CM permission to send clinicals to [facility] (infusion company pt used recently). Home health with [facility] [phone]. Pt also said she called [facility] today and told them she left hospital already. Was told that if order was sent, they can deliver medications later today. Pt states she has an appointment with Dr. Luna on Saturday. CM informed her that Dr. Liao gave instructions to follow up in 2 weeks. CM gave pt Dr. Liao's office information. IV abx order / clinical was faxed to [facility]. CM spoke with Jose F Garcia ([phone]) and informed her of orders.
--- NOTE | 2019-09-12 12:37 | Discharge Summary ---
FINAL DISCHARGE DIAGNOSES: 1. Left against medical advice. 2. Status post left foot hardware removal on the left foot performed by Podiatry on 09/09/2019. 3. Left foot osteomyelitis with underlying cellulitis. 4. Type 2 diabetes with neuropathy. 5. Anxiety. 6. History of insomnia. CONSULTANTS: Podiatry and Infectious Disease. PHYSICAL EXAMINATION: VITAL SIGNS: Temperature is 96.6, pulse 74, respiratory rate is 20, blood pressure 124/52, pulse ox 93% on room air. LABORATORY FINDINGS: Show white count 9.6, hemoglobin 11, hematocrit 34 platelets was 311. Chemistry reviewed and was stable. MICROBIOLOGY: Wound cultures were no growth to date, but pending final results. IMAGING STUDIES: Chest x-ray was negative. HOSPITAL COURSE: This is a 58-year-old female very noncompliant with her medical care, also has left against medical advice on several occasions. In ER at [facility] presented to the hospital as a direct admission after having a status post left foot hardware removal performed by Podiatry on 09/09/2019. The patient was admitted for further management and care. ID and Podiatry were consulted. The patient was maintained on broad-spectrum IV antibiotics per ID recommendations. The patient had a PICC line placed already. We are in the process of possibly placing the patient to [facility] facility, if she qualifies based on insurance, but the patient refused to stay and left against medical advice on 09/10/2019 in the evening time. Despite nursing staff and all the physicians convention the patient to stay, the patient still left against medical advice. The patient has a history of leaving against medical advice at this facility in the past as well. MEDICATIONS: None. DISPOSITION: Left against medical advice. CONDITION: Left against medical advice. In the event of any worsening symptoms, patient was advised to come back to the ED for further evaluation. Discharge summary took greater than 35 minutes. Once again, patient left against medical advice. MD DEVANG Garcia/RANJANA /[id number]
== END 2019-09-10 21:37 | disposition left against medical advice (07) | DRG 908 ==
LOC: OR 06:09 → PACU V 08:35 → MED/SURG2 10:36
PROVIDERS: ADMIT Internal Medicine; ATTEND Internal Medicine
PROC: 0SPN04Z Removal of Internal Fixation Device from Left Metatarsal-Phalangeal Joint, Open Approach (ICD-10-PCS; principal; 2019-09-09 07:40)
DX: T81.32XA Disruption of internal operation (surgical) wound, not elsewhere classified, initial encounter (principal); M86.8X7 Other osteomyelitis, ankle and foot; L03.90 Cellulitis, unspecified; E11.69 Type 2 diabetes mellitus with other specified complication; Z79.4 Long term (current) use of insulin; G47.00 Insomnia, unspecified; F41.9 Anxiety disorder, unspecified; Z91.19 Patient's noncompliance with other medical treatment and regimen; E11.42 Type 2 diabetes mellitus with diabetic polyneuropathy; I10 Essential (primary) hypertension
CPT/HCPCS: 36415; 71046; 80048; 82948; 85025; 85651; 86140; 87071; 87075; 87205; 88300; 88302; 93005; J0690; J1100; J1170; J1650; J1817; J2001; J2250; J2405; J3010; J7050; J7799

== ENCOUNTER 2021-04-04 14:31 | Inpatient (IN) | payer MEDICARE, OTHER ==
[~2021-04-04] VITALS: Ht 160 cm; Wt 77.6 kg
[2021-04-04] MEDS ORDERED: DEXTROSE 10% 1,000 ML IV ONE ×2 (14:43→15:45)
[2021-04-04] MEDS ORDERED: DEXTROSE 50% SYRINGE 50 ML IV ONE (14:44)
[2021-04-04] MEDS ORDERED: DEXTROSE 50% SYRINGE 50 ML IV STA ×2 (14:59→16:09)
[2021-04-04 15:01] LABS: BASOPHILS # (AUTO) 0.1 (0.0-0.1); BASOPHILS % 0.6 % (0.0-1.0); EOSINOPHILS # (AUTO) 0.2 (0.0-0.4); HEMATOCRIT 37.4 % (34.2-44.1); HEMOGLOBIN 11.4 g/dL (12.0-16.0); LYMPHOCYTES # (AUTO) 2.5 (1.0-3.2); LYMPHOCYTES % 32.5 % (18.0-39.1); MEAN CORPUSCULAR HEMOGLOBIN 27.3 pg (28-32); MEAN CORPUSCULAR HGB CONC 30.5 g/dL (31-35); MEAN CORPUSCULAR VOLUME 89.7 fL (81-99); MONOCYTES # (AUTO) 0.6 (0.2-0.8); MONOCYTES % 7.8 % (4.4-11.3); NEUTROPHILS # (AUTO) 4.3 (2.1-6.9); NEUTROPHILS % 55.7 % (38.7-80.0); PLATELET COUNT 316 x10e3/uL (140-360); RED BLOOD COUNT 4.17 x10e6/uL (3.6-5.1); RED CELL DISTRIBUTION WIDTH 14.9 % (11.7-14.4)
[2021-04-04 15:16] LABS: CLARITY,URINE CLOUDY (CLEAR); COLOR,URINE YELLOW (YELLOW); LEUKOCYTE ESTERASE ,URINE MODERATE (NEGATIVE); NITRITE,URINE NEGATIVE (NEGATIVE)
[2021-04-04 15:16] LABS: ALBUMIN 3.4 g/dL (3.5-5.0); ALBUMIN/GLOBULIN RATIO 0.7 (0.8-2.0); ANION GAP 14.1 mmol/L (8-16); CALCIUM 9.3 mg/dL (8.4-10.2); CREATININE, SERUM 0.86 mg/dL (0.57-1.11); POTASSIUM 3.1 mmol/L (3.5-5.1)
[2021-04-04 15:17] LABS: AMPHETAMINES SCREEN,URINE NEGATIVE (NEGATIVE); BENZODIAZEPINES SCREEN,URINE NEGATIVE (NEGATIVE); KETONES,URINE NEGATIVE (NEGATIVE); PHENCYCLIDINE SCREEN,URINE NEGATIVE (NEGATIVE); PROTEIN,URINE DIPSTICK TRACE (NEGATIVE); URINE UROBILINOGEN 0.2 mg/dL (0.2 - 1)
[2021-04-04 15:28] LABS: BACTERIA,URINE MANY /HPF; RBC,URINE 0-5 /HPF (0-5)
[2021-04-04 15:39] LABS: SALICYLATE < 5.0 mg/dL (0-30)
[2021-04-04] MEDS: DEXTROSE 10% 1,000 ML IV SCH ×3 (16:15→23:30)
[2021-04-04] MEDS ORDERED: CEFTRIAXONE 1 GM VIAL IV NR (16:15)
[2021-04-04] MEDS ORDERED: POTASSIUM CHLORIDE 20 MEQ TAB CR PO STA (20:08)
[2021-04-04] MEDS ORDERED: VANCOMYCIN 1GM/NS 250 ML 250 ML IV ONE (20:15)
[2021-04-04] MEDS ORDERED: TRAZODONE HCL 50 MG TAB PO PRN (20:15)
[2021-04-04] MEDS ORDERED: DEXTROSE 50% SYRINGE 50 ML IV PRN (20:30)
[2021-04-04] MEDS ORDERED: SODIUM CHLORIDE 0.9% 250ML 250 ML ONE (20:43)
[2021-04-04] MEDS ORDERED: Vancomycin IV 1 GM VIAL ONE (20:43)
[2021-04-05] VITALS (7 sets, daily range): BP systolic 123–155; BP diastolic 63–80
[2021-04-05 05:49] LABS: BASOPHILS # (AUTO) 0.1 (0.0-0.1); BASOPHILS % 0.6 % (0.0-1.0); EOSINOPHILS # (AUTO) 0.2 (0.0-0.4); EOSINOPHILS % 2.5 % (0.0-6.0); HEMATOCRIT 31.4 % (34.2-44.1); LYMPHOCYTES # (AUTO) 1.5 (1.0-3.2); LYMPHOCYTES % 17.6 % (18.0-39.1); MEAN CORPUSCULAR HEMOGLOBIN 27.9 pg (28-32); MEAN CORPUSCULAR HGB CONC 31.8 g/dL (31-35); MEAN CORPUSCULAR VOLUME 87.5 fL (81-99); MONOCYTES # (AUTO) 0.6 (0.2-0.8); MONOCYTES % 6.9 % (4.4-11.3); NEUTROPHILS # (AUTO) 6.2 (2.1-6.9); NEUTROPHILS % 71.8 % (38.7-80.0); PLATELET COUNT 280 x10e3/uL (140-360); RED BLOOD COUNT 3.59 x10e6/uL (3.6-5.1); RED CELL DISTRIBUTION WIDTH 14.8 % (11.7-14.4)
[2021-04-05 06:30] LABS: ALBUMIN 2.5 g/dL (3.5-5.0); ALBUMIN/GLOBULIN RATIO 0.7 (0.8-2.0); ANION GAP 11.7 mmol/L (8-16); CALCIUM 8.1 mg/dL (8.4-10.2); CREATININE, SERUM 0.74 mg/dL (0.57-1.11); MAGNESIUM 1.8 MG/DL (1.3-2.1); POTASSIUM 3.7 mmol/L (3.5-5.1)
[2021-04-05 06:51] LABS: FREE THYROXINE INDEX 1.6305 (1.4-3.8); THYROID STIMULATING HORMONE 0.952 uIU/mL (0.350-4.940)
[2021-04-05] MEDS: DULOXETINE HCL 30 MG DELAYED RELEASE PO SCH ×2 (09:05→17:07)
[2021-04-05] MEDS: MULTIVITAMINS/MINERALS TAB PO SCH (09:06)
[2021-04-05] MEDS: MAGNESIUM OXIDE 400 MG TAB PO SCH (09:06)
[2021-04-05] MEDS ORDERED: SODIUM CHLORIDE 0.9% 250ML 250 ML ONE (17:02)
[2021-04-05] MEDS: CEFTRIAXONE 1 GM in SODIUM CHLORIDE 0.9% 50ML 50 ML IV SCH (17:07)
[2021-04-05] MEDS: ENOXAPARIN SOD INJ 40 MG/0.4 ML SYR SC SCH (17:07)
[2021-04-05] MEDS: TRAMADOL/APAP 37.5MG-325MG TAB PO PRN (17:13)
[2021-04-05] MEDS ORDERED: INSULIN GLARGINE 100 UNITS/ML VIAL SQ ONE (21:45)
[2021-04-05] MEDS ORDERED: DEXTROSE 50% SYRINGE 50 ML IV PRN (21:45)
[2021-04-06] VITALS (9 sets, daily range): BP systolic 131–159; BP diastolic 67–77
[2021-04-06 05:33] LABS: BASOPHILS % 0.7 % (0.0-1.0); EOSINOPHILS # (AUTO) 0.2 (0.0-0.4); HEMATOCRIT 34.8 % (34.2-44.1); HEMOGLOBIN 11.1 g/dL (12.0-16.0); LYMPHOCYTES % 33.8 % (18.0-39.1); MEAN CORPUSCULAR HEMOGLOBIN 27.6 pg (28-32); MEAN CORPUSCULAR HGB CONC 31.9 g/dL (31-35); MEAN CORPUSCULAR VOLUME 86.6 fL (81-99); MONOCYTES # (AUTO) 0.6 (0.2-0.8); MONOCYTES % 9.1 % (4.4-11.3); NEUTROPHILS # (AUTO) 3.2 (2.1-6.9); NEUTROPHILS % 52.7 % (38.7-80.0); PLATELET COUNT 290 x10e3/uL (140-360); RED BLOOD COUNT 4.02 x10e6/uL (3.6-5.1); RED CELL DISTRIBUTION WIDTH 14.7 % (11.7-14.4)
[2021-04-06 06:07] LABS: ALBUMIN 2.6 g/dL (3.5-5.0); ALBUMIN/GLOBULIN RATIO 0.7 (0.8-2.0); ANION GAP 14.6 mmol/L (8-16); CALCIUM 8.3 mg/dL (8.4-10.2); CREATININE, SERUM 0.89 mg/dL (0.57-1.11); POTASSIUM 3.6 mmol/L (3.5-5.1)
[2021-04-06 06:11] LABS: INR 0.95; PROTHROMBIN TIME 13.3 seconds (11.9-14.5)
[2021-04-06] MEDS: INSULIN LISPRO 100 UNIT/1 ML 3ML VIAL SQ SCH ×3 (07:30→15:57)
[2021-04-06] MEDS: GABAPENTIN 300 MG CAP PO SCH ×3 (09:00→21:00)
[2021-04-06] MEDS: PREGABALIN 75 MG CAP PO SCH ×3 (09:00→21:00)
[2021-04-06] MEDS: MULTIVITAMINS/MINERALS TAB PO SCH (09:34)
[2021-04-06] MEDS: MAGNESIUM OXIDE 400 MG TAB PO SCH (09:34)
[2021-04-06] MEDS: NPH, HUMAN INSULIN ISOPHANE 100 UNIT/1 ML 3ML VIAL SQ SCH ×2 (09:34→17:00)
[2021-04-06] MEDS: DULOXETINE HCL 30 MG DELAYED RELEASE PO SCH ×2 (09:35→17:27)
[2021-04-06] MEDS: ENOXAPARIN SOD INJ 40 MG/0.4 ML SYR SC SCH (17:27)
[2021-04-06] MEDS: CEFTRIAXONE 1 GM in SODIUM CHLORIDE 0.9% 50ML 50 ML IV SCH (17:27)
[2021-04-06] MEDS ORDERED: SODIUM CHLORIDE 0.9% 250ML 250 ML ONE (17:28)
[2021-04-07] VITALS (8 sets, daily range): BP systolic 116–150; BP diastolic 61–77
[2021-04-07] MEDS: TRAMADOL/APAP 37.5MG-325MG TAB PO PRN ×2 (01:40→11:49)
[2021-04-07] MEDS: PREGABALIN 75 MG CAP PO SCH ×3 (08:35→21:12)
[2021-04-07] MEDS: MAGNESIUM OXIDE 400 MG TAB PO SCH (08:35)
[2021-04-07] MEDS: DULOXETINE HCL 30 MG DELAYED RELEASE PO SCH ×2 (08:35→17:21)
[2021-04-07] MEDS: GABAPENTIN 300 MG CAP PO SCH ×3 (08:35→21:12)
[2021-04-07] MEDS: MULTIVITAMINS/MINERALS TAB PO SCH (08:35)
[2021-04-07] MEDS: INSULIN LISPRO 100 UNIT/1 ML 3ML VIAL SQ SCH ×3 (08:51→15:18)
[2021-04-07] MEDS: NPH, HUMAN INSULIN ISOPHANE 100 UNIT/1 ML 3ML VIAL SQ SCH ×2 (08:51→17:23)
[2021-04-07 11:07] LABS: CHOL/HDL RATIO 4.7 (3.0-3.6)
[2021-04-07] MEDS: CEFTRIAXONE 1 GM in SODIUM CHLORIDE 0.9% 50ML 50 ML IV SCH (17:21)
[2021-04-07] MEDS: ENOXAPARIN SOD INJ 40 MG/0.4 ML SYR SC SCH (17:21)
[2021-04-08] VITALS: BP 133/77
[2021-04-08 04:00] VITALS: BP 128/64
[2021-04-08 08:10] VITALS: BP 140/75
[2021-04-08] MEDS: MAGNESIUM OXIDE 400 MG TAB PO SCH (09:10)
[2021-04-08] MEDS: MULTIVITAMINS/MINERALS TAB PO SCH (09:11)
[2021-04-08] MEDS: DULOXETINE HCL 30 MG DELAYED RELEASE PO SCH (09:11)
[2021-04-08] MEDS: GABAPENTIN 300 MG CAP PO SCH (09:11)
[2021-04-08] MEDS: PREGABALIN 75 MG CAP PO SCH (09:11)
[2021-04-08] MEDS: INSULIN LISPRO 100 UNIT/1 ML 3ML VIAL SQ SCH ×2 (09:18→11:20)
[2021-04-08] MEDS: NPH, HUMAN INSULIN ISOPHANE 100 UNIT/1 ML 3ML VIAL SQ SCH (09:19)
[2021-04-08 10:39] VITALS: BP 140/75
[2021-04-08 11:07] VITALS: BP 140/75
[2021-04-08 11:21] VITALS: BP 123/62
[2021-04-08] MEDS ORDERED: NOVOLIN N100 UNIT/1 SC ×2 (13:07)
[2021-04-08] MEDS ORDERED: KEFLEX125 MG/5 M PO (13:09)
== END 2021-04-08 15:00 | disposition home or self-care (01) | DRG 637 ==
LOC: ER 14:38 → ERHOLD 17:09 → IMCU 04-05 06:41 → MED/SURG2 04-05 22:32
PROVIDERS: ADMIT Internal Medicine; ATTEND Internal Medicine
DX: E11.649 Type 2 diabetes mellitus with hypoglycemia without coma (principal); G93.41 Metabolic encephalopathy; G92 Toxic encephalopathy; F17.210 Nicotine dependence, cigarettes, uncomplicated; E87.6 Hypokalemia; E88.09 Other disorders of plasma-protein metabolism, not elsewhere classified; F19.10 Other psychoactive substance abuse, uncomplicated; R41.3 Other amnesia; F14.10 Cocaine abuse, uncomplicated; F15.10 Other stimulant abuse, uncomplicated
CPT/HCPCS: 36415; 70450; 71045; 80053; 80061; 80307; 80320; 80329; 81001; 82948; 83036; 83605; 83690; 83735; 84436; 84443; 84479; 85025; 85610; 87040; 87086; 87186; 93005; 99285; J0696; J1650; J1815; J3370; J7050; J7799; U0002

== ENCOUNTER 2021-07-21 09:56 | Observation (INO) | payer OTHER ==
[~2021-07-21] VITALS: Ht 160 cm; Wt 68.5 kg
[~2021-07-21 09:56] MED LIST changes: +KEFLEX125 MG/5 M PO
[2021-07-21] MEDS ORDERED: DEXTROSE 50% SYRINGE 50 ML IV ONE ×2 (10:10→10:30)
[2021-07-21 10:26] LABS: BASOPHILS # (AUTO) 0.1 (0.0-0.1); BASOPHILS % 0.6 % (0.0-1.0); EOSINOPHILS # (AUTO) 0.5 (0.0-0.4); EOSINOPHILS % 6.1 % (0.0-6.0); HEMATOCRIT 39.9 % (34.2-44.1); HEMOGLOBIN 12.2 g/dL (12.0-16.0); LYMPHOCYTES # (AUTO) 3.4 (1.0-3.2); MEAN CORPUSCULAR HEMOGLOBIN 26.2 pg (28-32); MEAN CORPUSCULAR HGB CONC 30.6 g/dL (31-35); MEAN CORPUSCULAR VOLUME 85.6 fL (81-99); MONOCYTES # (AUTO) 0.8 (0.2-0.8); MONOCYTES % 9.8 % (4.4-11.3); NEUTROPHILS # (AUTO) 3.1 (2.1-6.9); NEUTROPHILS % 40.1 % (38.7-80.0); PLATELET COUNT 268 x10e3/uL (140-360); RED BLOOD COUNT 4.66 x10e6/uL (3.6-5.1); RED CELL DISTRIBUTION WIDTH 16.4 % (11.7-14.4)
[2021-07-21] MEDS ORDERED: DEXTROSE 10% 1,000 ML IV ONE ×2 (10:29→10:30)
[2021-07-21] MEDS ORDERED: DEXTROSE 50% SYRINGE 50 ML IV PRN ×2 (10:30→13:00)
[2021-07-21 10:54] LABS: ALBUMIN 3.5 g/dL (3.5-5.0); ALBUMIN/GLOBULIN RATIO 0.7 (0.8-2.0); ANION GAP 14.1 mmol/L (8-16); CALCIUM 9.3 mg/dL (8.4-10.2); CREATININE, SERUM 0.91 mg/dL (0.57-1.11); POTASSIUM 4.1 mmol/L (3.5-5.1)
[2021-07-21 11:06] LABS: CLARITY,URINE CLEAR (CLEAR); COLOR,URINE YELLOW (YELLOW); LEUKOCYTE ESTERASE ,URINE NEGATIVE (NEGATIVE); NITRITE,URINE NEGATIVE (NEGATIVE); PROTEIN,URINE DIPSTICK NEGATIVE (NEGATIVE)
[2021-07-21 11:07] LABS: KETONES,URINE NEGATIVE (NEGATIVE); URINE UROBILINOGEN 0.2 mg/dL (0.2 - 1)
[2021-07-21 11:22] LABS: BACTERIA,URINE FEW /HPF; EPITHELIAL CELLS,URINE FEW /LPF; RBC,URINE 0-5 /HPF (0-5); WBC,URINE (MAN) 0-5 /HPF (0-5)
[2021-07-21 11:30] LABS: AMPHETAMINES SCREEN,URINE NEGATIVE (NEGATIVE); BENZODIAZEPINES SCREEN,URINE NEGATIVE (NEGATIVE); PHENCYCLIDINE SCREEN,URINE NEGATIVE (NEGATIVE)
[2021-07-21 11:32] LABS: ABG PCO2 43 mmHg (35-45); ABG PH 7.39 (7.35-7.45); ABG PO2 110 mmHg (80-105)
[2021-07-21] MEDS ORDERED: LEVEMIR FL100 UNIT/1 SC (11:32)
[2021-07-21 11:33] LABS: ABG HCO3 26 mmol/L (22-26); ABG TCO2 28
[2021-07-21] MEDS ORDERED: TRAZODONE HCL 50 MG TAB PO PRN (13:00)
[2021-07-21 13:06] VITALS: BP 123/74
[2021-07-21 13:13] VITALS: BP 123/74
[2021-07-21] MEDS ORDERED: HYDROCODONE/APAP 10MG-325MG TAB PO PRN (13:45)
[2021-07-21] MEDS ORDERED: ZOLPIDEM TARTRATE 5 MG TAB PO PRN (13:45)
[2021-07-21] MEDS: GABAPENTIN 300 MG CAP PO SCH ×2 (14:32→21:01)
[2021-07-21] MEDS: DULOXETINE HCL 30 MG DELAYED RELEASE PO SCH (14:32)
[2021-07-21 15:00] VITALS: BP 123/74
[2021-07-21] MEDS ORDERED: GABAPENTIN 100 MG CAP PO SCH (15:00)
[2021-07-21] MEDS: FAMOTIDINE 20 MG TAB PO SCH (16:12)
[2021-07-21] MEDS ORDERED: INSULIN GLARGINE 100 UNITS/ML VIAL SQ ONE (17:00)
[2021-07-21] MEDS ORDERED: DEXTROSE 5% 1,000 ML IV ONE (17:09)
[2021-07-21] MEDS: DEXTROSE 5% 1,000 ML IV SCH ×2 (17:30→21:33)
[2021-07-21] MEDS: INSULIN REGULAR, HUMAN 100 UNIT/1 ML SQ SCH ×2 (17:30→21:02)
[2021-07-21 18:43] VITALS: BP 147/65
[2021-07-21 19:00] VITALS: BP 134/65
[2021-07-22 01:22] VITALS: BP 101/60
[2021-07-22 03:11] VITALS: BP 101/60
[2021-07-22 05:11] VITALS: BP 126/64
[2021-07-22 05:59] LABS: BASOPHILS % 0.4 % (0.0-1.0); EOSINOPHILS # (AUTO) 0.5 (0.0-0.4); EOSINOPHILS % 4.4 % (0.0-6.0); HEMATOCRIT 35.3 % (34.2-44.1); HEMOGLOBIN 11.6 g/dL (12.0-16.0); LYMPHOCYTES % 35.3 % (18.0-39.1); MEAN CORPUSCULAR HEMOGLOBIN 27.1 pg (28-32); MEAN CORPUSCULAR HGB CONC 32.9 g/dL (31-35); MEAN CORPUSCULAR VOLUME 82.5 fL (81-99); MONOCYTES % 8.8 % (4.4-11.3); NEUTROPHILS # (AUTO) 5.7 (2.1-6.9); NEUTROPHILS % 50.6 % (38.7-80.0); PLATELET COUNT 302 x10e3/uL (140-360); RED BLOOD COUNT 4.28 x10e6/uL (3.6-5.1); RED CELL DISTRIBUTION WIDTH 16.4 % (11.7-14.4)
[2021-07-22 06:07] LABS: CALCIUM 8.9 mg/dL (8.4-10.2); CREATININE, SERUM 0.91 mg/dL (0.57-1.11)
[2021-07-22 08:04] VITALS: BP 111/62
[2021-07-22] MEDS: FAMOTIDINE 20 MG TAB PO SCH (08:40)
[2021-07-22] MEDS: DULOXETINE HCL 30 MG DELAYED RELEASE PO SCH (08:40)
[2021-07-22] MEDS: GABAPENTIN 300 MG CAP PO SCH (08:40)
[2021-07-22] MEDS ORDERED: MULTIVITAMINS/MINERALS TAB PO SCH (09:00)
[2021-07-22 09:34] VITALS: BP 111/62
[2021-07-22] MEDS: INSULIN REGULAR, HUMAN 100 UNIT/1 ML SQ SCH ×2 (11:33→12:56)
[2021-07-22 12:11] VITALS: BP 133/66
== END 2021-07-22 15:11 | disposition home health service (06) ==
LOC: ER 10:01 → ERHOLD 11:13 → INTOOBSV 11:13 → ICU 12:29 → MED/SURG2 22:38
PROVIDERS: ADMIT Internal Medicine; ATTEND Internal Medicine
DX: E11.649 Type 2 diabetes mellitus with hypoglycemia without coma (principal); G93.41 Metabolic encephalopathy; I10 Essential (primary) hypertension; B18.2 Chronic viral hepatitis C; F17.210 Nicotine dependence, cigarettes, uncomplicated; F14.10 Cocaine abuse, uncomplicated; F11.10 Opioid abuse, uncomplicated; E11.42 Type 2 diabetes mellitus with diabetic polyneuropathy; G89.4 Chronic pain syndrome; Z88.2 Allergy status to sulfonamides; Z88.8 Allergy status to other drugs, medicaments and biological substances; Z20.822 Contact with and (suspected) exposure to COVID-19
CPT/HCPCS: 36415 ×2; 36600; 70450; 80048; 80053; 80307; 81001; 82805; 82948 ×2; 83036; 85025 ×2; 93005; 96372; 99285; G0378 ×2; J1815; J1817; J7070; J7799; U0002

== ENCOUNTER 2021-07-31 22:27 | Observation (INO) | payer OTHER ==
[~2021-07-31] VITALS: Ht 160 cm; Wt 68.5 kg
[~2021-07-31 22:27] MED LIST changes: +LEVEMIR FL100 UNIT/1 SC
[2021-07-31] MEDS ORDERED: GLUCAGON FOR INJ 1 MG VIAL IV ONE (22:45)
[2021-07-31] MEDS ORDERED: NALOXONE HCL 2MG/2 ML SYRINGE IV ONE (22:45)
[2021-07-31] MEDS ORDERED: LORAZEPAM INJ 2 MG/ML VIAL IV ONE (22:45)
[2021-07-31 23:02] LABS: BASOPHILS # (AUTO) 0.1 (0.0-0.1); BASOPHILS % 0.5 % (0.0-1.0); EOSINOPHILS # (AUTO) 0.2 (0.0-0.4); EOSINOPHILS % 1.1 % (0.0-6.0); HEMATOCRIT 32.7 % (34.2-44.1); HEMOGLOBIN 10.4 g/dL (12.0-16.0); LYMPHOCYTES # (AUTO) 2.2 (1.0-3.2); LYMPHOCYTES % 11.4 % (18.0-39.1); MEAN CORPUSCULAR HEMOGLOBIN 26.8 pg (28-32); MEAN CORPUSCULAR HGB CONC 31.8 g/dL (31-35); MEAN CORPUSCULAR VOLUME 84.3 fL (81-99); MONOCYTES # (AUTO) 1.5 (0.2-0.8); MONOCYTES % 7.9 % (4.4-11.3); NEUTROPHILS # (AUTO) 15.2 (2.1-6.9); NEUTROPHILS % 77.9 % (38.7-80.0); PLATELET COUNT 355 x10e3/uL (140-360); RED BLOOD COUNT 3.88 x10e6/uL (3.6-5.1); RED CELL DISTRIBUTION WIDTH 15.9 % (11.7-14.4)
[2021-07-31 23:17] LABS: ALBUMIN 3.2 g/dL (3.5-5.0); ALBUMIN/GLOBULIN RATIO 0.8 (0.8-2.0); ANION GAP 14.5 mmol/L (8-16); CALCIUM 9.2 mg/dL (8.4-10.2); CREATININE, SERUM 0.85 mg/dL (0.57-1.11); POTASSIUM 3.5 mmol/L (3.5-5.1)
[2021-07-31 23:31] LABS: AMPHETAMINES SCREEN,URINE NEGATIVE (NEGATIVE); PHENCYCLIDINE SCREEN,URINE NEGATIVE (NEGATIVE)
[2021-07-31 23:32] LABS: BENZODIAZEPINES SCREEN,URINE NEGATIVE (NEGATIVE)
[2021-08-01 00:33] LABS: CLARITY,URINE CLEAR (CLEAR); COLOR,URINE YELLOW (YELLOW); KETONES,URINE NEGATIVE (NEGATIVE); LEUKOCYTE ESTERASE ,URINE NEGATIVE (NEGATIVE); NITRITE,URINE NEGATIVE (NEGATIVE); PROTEIN,URINE DIPSTICK NEGATIVE (NEGATIVE); URINE UROBILINOGEN 0.2 mg/dL (0.2 - 1)
[2021-08-01 00:35] LABS: BACTERIA,URINE FEW /HPF; EPITHELIAL CELLS,URINE RARE /LPF; WBC,URINE (MAN) 0-5 /HPF (0-5)
[2021-08-01] MEDS ORDERED: DEXTROSE 50% SYRINGE 50 ML IV ONE (01:14)
[2021-08-01] MEDS ORDERED: DEXTROSE 50% SYRINGE 50 ML IV STA (01:40)
[2021-08-01] MEDS ORDERED: DEXTROSE 50% SYRINGE 50 ML IV PRN (01:45)
[2021-08-01] MEDS ORDERED: ACETAMINOPHEN 325 MG TAB PO STA (02:03)
[2021-08-01] MEDS: SODIUM CHLORIDE 0.9% 1000ML 1,000 ML IV SCH ×3 (02:10→16:48)
[2021-08-01] MEDS ORDERED: ACETAMINOPHEN 325 MG TAB ONE (02:15)
[2021-08-01] MEDS ORDERED: KETOROLAC TROMETHAMINE 30 MG/ML VIAL ONE (03:00)
[2021-08-01] MEDS ORDERED: DEXTROSE 5%/0.45% SOD CHL 1,000 ML IV ONE ×2 (03:45)
[2021-08-01] MEDS: PIPERACILLIN/TAZOBACTAM 3.375 GM in SODIUM CHLORIDE 0.9% 50ML 50 ML IV SCH ×3 (06:13→16:59)
[2021-08-01 08:20] VITALS: BP 116/54
[2021-08-01 08:30] VITALS: BP 116/54
[2021-08-01 09:14] VITALS: BP 116/54
[2021-08-01 11:27] VITALS: BP 156/67
[2021-08-01 13:15] LABS: CREATINE KINASE MB 1.1 ng/mL (0-5.0)
[2021-08-01 15:52] VITALS: BP 106/63
[2021-08-01] MEDS: DULOXETINE HCL 30 MG DELAYED RELEASE PO SCH (16:59)
[2021-08-01] MEDS ORDERED: IOPAMIDOL 370 MG/ML 200 ML INFUS..BTL INJ ONE (17:47)
[2021-08-01] MEDS ORDERED: SODIUM CHLORIDE 0.9% 50ML 50 ML ONE (17:47)
[2021-08-01 18:25] LABS: ALBUMIN 2.9 g/dL (3.5-5.0); ALBUMIN/GLOBULIN RATIO 0.7 (0.8-2.0); ANION GAP 13.2 mmol/L (8-16); CALCIUM 8.1 mg/dL (8.4-10.2); CREATININE, SERUM 1.22 mg/dL (0.57-1.11); POTASSIUM 4.2 mmol/L (3.5-5.1)
[2021-08-01] MEDS: INSULIN LISPRO 100 UNIT/1 ML 3ML VIAL SQ SCH ×2 (18:39→22:03)
[2021-08-01 18:41] LABS: CREATINE KINASE MB 0.9 ng/mL (0-5.0)
[2021-08-01 20:00] VITALS: BP 145/59
[2021-08-01] MEDS ORDERED: GABAPENTIN 300 MG CAP PO SCH (21:00)
[2021-08-01] MEDS: GABAPENTIN 300 MG CAP PO SCH (22:04)
[2021-08-01] MEDS ORDERED: INSULIN GLARGINE 100 UNITS/ML VIAL SQ ONE (23:00)
[2021-08-01] MEDS: TRAZODONE HCL 50 MG TAB PO PRN (23:16)
[2021-08-01] MEDS: ACETAMINOPHEN 325 MG TAB PO PRN (23:16)
[2021-08-02] VITALS (8 sets, daily range): BP systolic 117–168; BP diastolic 58–80
[2021-08-02] MEDS: PIPERACILLIN/TAZOBACTAM 3.375 GM in SODIUM CHLORIDE 0.9% 50ML 50 ML IV SCH ×4 (01:02→16:17)
[2021-08-02] MEDS ORDERED: DEXTROSE 50% SYRINGE 50 ML IV PRN (02:45)
[2021-08-02 04:59] LABS: BASOPHILS % 0.2 % (0.0-1.0); EOSINOPHILS # (AUTO) 0.4 (0.0-0.4); EOSINOPHILS % 4.4 % (0.0-6.0); HEMATOCRIT 29.5 % (34.2-44.1); HEMOGLOBIN 9.5 g/dL (12.0-16.0); LYMPHOCYTES # (AUTO) 3.2 (1.0-3.2); LYMPHOCYTES % 34.9 % (18.0-39.1); MEAN CORPUSCULAR HEMOGLOBIN 26.8 pg (28-32); MEAN CORPUSCULAR HGB CONC 32.2 g/dL (31-35); MEAN CORPUSCULAR VOLUME 83.3 fL (81-99); MONOCYTES # (AUTO) 0.9 (0.2-0.8); MONOCYTES % 9.7 % (4.4-11.3); NEUTROPHILS # (AUTO) 4.6 (2.1-6.9); NEUTROPHILS % 49.9 % (38.7-80.0); PLATELET COUNT 324 x10e3/uL (140-360); RED BLOOD COUNT 3.54 x10e6/uL (3.6-5.1); RED CELL DISTRIBUTION WIDTH 15.7 % (11.7-14.4)
[2021-08-02 05:20] LABS: ALBUMIN 2.5 g/dL (3.5-5.0); ALBUMIN/GLOBULIN RATIO 0.7 (0.8-2.0); ANION GAP 13.9 mmol/L (8-16); CALCIUM 7.8 mg/dL (8.4-10.2); CREATININE, SERUM 1.05 mg/dL (0.57-1.11); POTASSIUM 3.9 mmol/L (3.5-5.1)
[2021-08-02] MEDS: SODIUM CHLORIDE 0.9% 1000ML 1,000 ML IV SCH ×3 (06:18→16:17)
[2021-08-02] MEDS ORDERED: INSULIN REGULAR, HUMAN 100 UNIT/1 ML SQ SCH (07:30)
[2021-08-02] MEDS: MAGNESIUM OXIDE 400 MG TAB PO SCH (08:22)
[2021-08-02] MEDS: INSULIN LISPRO 100 UNIT/1 ML 3ML VIAL SQ SCH ×5 (08:22→21:13)
[2021-08-02] MEDS: DULOXETINE HCL 30 MG DELAYED RELEASE PO SCH ×2 (08:22→16:17)
[2021-08-02] MEDS ORDERED: INSULIN LISPRO 100 UNIT/1 ML 3ML VIAL SQ SCH ×2 (15:00)
[2021-08-02 15:28] LABS: FREE T4 (FREE THYROXINE) 0.86 ng/dL (0.8-1.8); THYROID STIMULATING HORMONE 0.617 uIU/mL (0.350-4.940)
[2021-08-02] MEDS ORDERED: INSULIN GLARGINE 100 UNITS/ML VIAL SQ SCH ×2 (17:00→21:00)
[2021-08-02] MEDS: ACETAMINOPHEN 325 MG TAB PO PRN (18:09)
[2021-08-02] MEDS: GABAPENTIN 300 MG CAP PO SCH (20:27)
[2021-08-02] MEDS ORDERED: HYDROCODONE/APAP 10MG-325MG TAB PO PRN (20:45)
[2021-08-02] MEDS: TRAZODONE HCL 50 MG TAB PO PRN (22:13)
[2021-08-03] VITALS: BP 133/68
[2021-08-03] MEDS: PIPERACILLIN/TAZOBACTAM 3.375 GM in SODIUM CHLORIDE 0.9% 50ML 50 ML IV SCH ×3 (00:26→11:37)
[2021-08-03] MEDS: SODIUM CHLORIDE 0.9% 1000ML 1,000 ML IV SCH ×2 (00:26→08:30)
[2021-08-03 04:00] VITALS: BP 156/79
[2021-08-03 05:07] LABS: BASOPHILS % 0.2 % (0.0-1.0); EOSINOPHILS # (AUTO) 0.4 (0.0-0.4); EOSINOPHILS % 4.6 % (0.0-6.0); HEMATOCRIT 30.8 % (34.2-44.1); HEMOGLOBIN 9.7 g/dL (12.0-16.0); LYMPHOCYTES # (AUTO) 3.5 (1.0-3.2); LYMPHOCYTES % 42.6 % (18.0-39.1); MEAN CORPUSCULAR HEMOGLOBIN 26.8 pg (28-32); MEAN CORPUSCULAR HGB CONC 31.5 g/dL (31-35); MEAN CORPUSCULAR VOLUME 85.1 fL (81-99); MONOCYTES # (AUTO) 0.6 (0.2-0.8); MONOCYTES % 6.8 % (4.4-11.3); NEUTROPHILS # (AUTO) 3.8 (2.1-6.9); NEUTROPHILS % 45.3 % (38.7-80.0); PLATELET COUNT 328 x10e3/uL (140-360); RED BLOOD COUNT 3.62 x10e6/uL (3.6-5.1); RED CELL DISTRIBUTION WIDTH 15.5 % (11.7-14.4)
[2021-08-03 05:43] LABS: ALBUMIN 2.4 g/dL (3.5-5.0); ALBUMIN/GLOBULIN RATIO 0.7 (0.8-2.0); ANION GAP 9.9 mmol/L (8-16); CALCIUM 8.3 mg/dL (8.4-10.2); CREATININE, SERUM 0.74 mg/dL (0.57-1.11); POTASSIUM 3.9 mmol/L (3.5-5.1)
[2021-08-03 08:00] VITALS: BP 179/87
[2021-08-03] MEDS: INSULIN LISPRO 100 UNIT/1 ML 3ML VIAL SQ SCH ×4 (08:37→11:37)
[2021-08-03] MEDS ORDERED: INSULIN GLARGINE 100 UNITS/ML VIAL SQ SCH (09:00)
[2021-08-03] MEDS: MAGNESIUM OXIDE 400 MG TAB PO SCH (09:02)
[2021-08-03] MEDS: DULOXETINE HCL 30 MG DELAYED RELEASE PO SCH (09:02)
[2021-08-03 10:28] VITALS: BP 179/87
[2021-08-03 11:50] VITALS: BP 130/65
[2021-08-03] MEDS ORDERED: DOXYCYCLINE HY100 MG PO (14:23)
[2021-08-03 16:01] VITALS: BP 134/75
[2021-08-04] MEDS ORDERED: INSULIN GLARGINE 100 UNITS/ML VIAL SQ SCH (09:00)
== END 2021-08-03 16:00 | disposition home or self-care (01) ==
LOC: ER 22:31 → ERHOLD 08-01 00:39 → MED/SURG2 08-01 08:04 → INTOOBSV 08-03 08:02 → OBSVTOIN 08-03 08:02
PROVIDERS: ADMIT Internal Medicine; ATTEND Internal Medicine
DX: A41.9 Sepsis, unspecified organism (principal); E10.649 Type 1 diabetes mellitus with hypoglycemia without coma; I10 Essential (primary) hypertension; L03.116 Cellulitis of left lower limb; E86.0 Dehydration; E10.69 Type 1 diabetes mellitus with other specified complication; E10.51 Type 1 diabetes mellitus with diabetic peripheral angiopathy without gangrene; E10.42 Type 1 diabetes mellitus with diabetic polyneuropathy; G93.41 Metabolic encephalopathy; G92.9 Unspecified toxic encephalopathy; F41.9 Anxiety disorder, unspecified; F32.A Depression, unspecified; B19.20 Unspecified viral hepatitis C without hepatic coma; F14.10 Cocaine abuse, uncomplicated; F15.10 Other stimulant abuse, uncomplicated; Z88.2 Allergy status to sulfonamides; Z88.8 Allergy status to other drugs, medicaments and biological substances; L97.529 Non-pressure chronic ulcer of other part of left foot with unspecified severity; F17.210 Nicotine dependence, cigarettes, uncomplicated; S91.205A Unspecified open wound of left lesser toe(s) with damage to nail, initial encounter; Z79.4 Long term (current) use of insulin; Z20.822 Contact with and (suspected) exposure to COVID-19
CPT/HCPCS: 36415 ×4; 71045; 73502; 73630; 73718; 74177; 80053 ×4; 80307; 80320; 81001; 82550 ×2; 82553 ×2; 82947; 82948 ×3; 83036 ×2; 84439; 84443; 84484 ×2; 85025 ×3; 87040; 87086; 93005; 99284; G0378 ×3; J1815 ×2; J1885; J2060; J2543 ×3; J7030 ×3; J7799 ×2; Q9967; U0002

== ENCOUNTER 2021-09-20 01:03 | Emergency (ER) | payer OTHER ==
[~2021-09-20] VITALS: Ht 160 cm; Wt 68.5 kg
[~2021-09-20 01:03] MED LIST changes: +DOXYCYCLINE HY100 MG PO
[2021-09-20] MEDS ORDERED: ZIPRASIDONE 20 MG VIAL IM STA (01:06)
[2021-09-20] MEDS ORDERED: DEXTROSE 5%/0.45% SOD CHL 1,000 ML IV ONE (01:15)
[2021-09-20 01:24] LABS: BASOPHILS % 0.4 % (0.0-1.0); EOSINOPHILS # (AUTO) 0.4 (0.0-0.4); EOSINOPHILS % 3.8 % (0.0-6.0); HEMATOCRIT 33.7 % (34.2-44.1); HEMOGLOBIN 10.3 g/dL (12.0-16.0); LYMPHOCYTES # (AUTO) 3.5 (1.0-3.2); LYMPHOCYTES % 31.5 % (18.0-39.1); MEAN CORPUSCULAR HEMOGLOBIN 26.9 pg (28-32); MEAN CORPUSCULAR HGB CONC 30.6 g/dL (31-35); MONOCYTES # (AUTO) 1.1 (0.2-0.8); MONOCYTES % 10.2 % (4.4-11.3); NEUTROPHILS % 53.7 % (38.7-80.0); PLATELET COUNT 309 x10e3/uL (140-360); RED BLOOD COUNT 3.83 x10e6/uL (3.6-5.1)
[2021-09-20] MEDS ORDERED: SODIUM CHLORIDE 0.9% 1000ML 1,000 ML ONE (01:29)
[2021-09-20 01:42] LABS: AMPHETAMINES SCREEN,URINE POSITIVE (NEGATIVE); BENZODIAZEPINES SCREEN,URINE NEGATIVE (NEGATIVE); CLARITY,URINE CLEAR (CLEAR); COLOR,URINE YELLOW (YELLOW); KETONES,URINE NEGATIVE (NEGATIVE); LEUKOCYTE ESTERASE ,URINE NEGATIVE (NEGATIVE); NITRITE,URINE NEGATIVE (NEGATIVE); PHENCYCLIDINE SCREEN,URINE NEGATIVE (NEGATIVE); PROTEIN,URINE DIPSTICK NEGATIVE (NEGATIVE); URINE UROBILINOGEN 0.2 mg/dL (0.2 - 1)
[2021-09-20 01:43] LABS: SALICYLATE < 5.0 mg/dL (0-30)
[2021-09-20 01:45] LABS: BACTERIA,URINE FEW /HPF; EPITHELIAL CELLS,URINE RARE /LPF; RBC,URINE 0-5 /HPF (0-5); WBC,URINE (MAN) 0-5 /HPF (0-5)
[2021-09-20 01:49] LABS: ALBUMIN 3.1 g/dL (3.5-5.0); ALBUMIN/GLOBULIN RATIO 0.7 (0.8-2.0); ANION GAP 15.7 mmol/L (8-16); CALCIUM 8.8 mg/dL (8.4-10.2); CREATININE, SERUM 1.15 mg/dL (0.57-1.11); POTASSIUM 4.7 mmol/L (3.5-5.1)
[2021-09-20 01:55] LABS: CREATINE KINASE MB 3.6 ng/mL (0-5.0)
== END 2021-09-20 05:40 | disposition home or self-care (01) ==
LOC: ER 01:20
DX: F19.10 Other psychoactive substance abuse, uncomplicated (principal); R45.851 Suicidal ideations; I10 Essential (primary) hypertension; E11.9 Type 2 diabetes mellitus without complications; F17.200 Nicotine dependence, unspecified, uncomplicated; Z88.2 Allergy status to sulfonamides; Z88.8 Allergy status to other drugs, medicaments and biological substances; Z88.1 Allergy status to other antibiotic agents; Z20.822 Contact with and (suspected) exposure to COVID-19; Z79.4 Long term (current) use of insulin; Z86.19 Personal history of other infectious and parasitic diseases
CPT/HCPCS: 36415; 80053; 80307; 80320; 80329 ×2; 81001; 82550; 82553; 82948; 84484; 85025; 93005; 99285; J3486; J7030; U0002

== ENCOUNTER → 2021-10-26 | Outpatient (CLI) | payer OTHER | LOC: MRI 09:57 | PROVIDERS: ATTEND Podiatrist Foot & Ankle Surgery | DX: M86.072 Acute hematogenous osteomyelitis, left ankle and foot (principal) ==

== ENCOUNTER 2021-12-11 13:04 | Inpatient (IN) | payer OTHER ==
[~2021-12-11] VITALS: Ht 160 cm; Wt 68.5 kg
[2021-12-11] MEDS ORDERED: DEXTROSE 50% SYRINGE 50 ML IV STA (13:15)
[2021-12-11] MEDS ORDERED: DEXTROSE 50% SYRINGE 50 ML IV ONE (13:21)
[2021-12-11] MEDS ORDERED: SODIUM CHLORIDE 0.9% 1000ML 1,000 ML IV STA (13:43)
[2021-12-11 14:03] LABS: BASOPHILS % 0.2 % (0.0-1.0); EOSINOPHILS # (AUTO) 0.2 (0.0-0.4); EOSINOPHILS % 1.1 % (0.0-6.0); HEMATOCRIT 33.5 % (34.2-44.1); HEMOGLOBIN 9.8 g/dL (12.0-16.0); LYMPHOCYTES # (AUTO) 2.8 (1.0-3.2); LYMPHOCYTES % 19.5 % (18.0-39.1); MEAN CORPUSCULAR HEMOGLOBIN 22.9 pg (28-32); MEAN CORPUSCULAR HGB CONC 29.3 g/dL (31-35); MEAN CORPUSCULAR VOLUME 78.3 fL (81-99); MONOCYTES # (AUTO) 0.7 (0.2-0.8); MONOCYTES % 4.8 % (4.4-11.3); NEUTROPHILS # (AUTO) 10.4 (2.1-6.9); NEUTROPHILS % 73.8 % (38.7-80.0); PLATELET COUNT 593 x10e3/uL (140-360); RED BLOOD COUNT 4.28 x10e6/uL (3.6-5.1); RED CELL DISTRIBUTION WIDTH 17.3 % (11.7-14.4)
[2021-12-11 14:07] LABS: PROTHROMBIN TIME 14.1 seconds (11.9-14.5)
[2021-12-11 14:08] LABS: PARTIAL THROMBOPLASTIN TIME 32.7 seconds (23.8-35.5)
[2021-12-11 14:11] LABS: CLARITY,URINE CLEAR (CLEAR); COLOR,URINE YELLOW (YELLOW); KETONES,URINE NEGATIVE (NEGATIVE); LEUKOCYTE ESTERASE ,URINE NEGATIVE (NEGATIVE); NITRITE,URINE NEGATIVE (NEGATIVE); PROTEIN,URINE DIPSTICK NEGATIVE (NEGATIVE); URINE UROBILINOGEN 0.2 mg/dL (0.2 - 1)
[2021-12-11 14:13] LABS: EPITHELIAL CELLS,URINE RARE /LPF; RBC,URINE 0-5 /HPF (0-5); WBC,URINE (MAN) 0-5 /HPF (0-5)
[2021-12-11 14:14] LABS: ALBUMIN 2.8 g/dL (3.5-5.0); ALBUMIN/GLOBULIN RATIO 0.5 (0.8-2.0); ANION GAP 12.8 mmol/L (8-16); CALCIUM 9.7 mg/dL (8.4-10.2); CREATININE, SERUM 0.85 mg/dL (0.57-1.11); POTASSIUM 3.8 mmol/L (3.5-5.1)
[2021-12-11 14:14] LABS: AMPHETAMINES SCREEN,URINE NEGATIVE (NEGATIVE); BENZODIAZEPINES SCREEN,URINE NEGATIVE (NEGATIVE); PHENCYCLIDINE SCREEN,URINE NEGATIVE (NEGATIVE)
[2021-12-11] MEDS ORDERED: PIPERACILLIN/TAZOBACTAM 3.375 GM in SODIUM CHLORIDE 0.9% 50ML 50 ML IV ONE (14:15)
[2021-12-11 14:17] LABS: SALICYLATE < 5.0 mg/dL (0-30)
[2021-12-11 14:20] LABS: CREATINE KINASE MB 2.8 ng/mL (0-5.0)
[2021-12-11 14:31] LABS: B-TYPE NATRIURETIC PEPTIDE2 589.7 pg/mL (0-100)
[2021-12-11] MEDS ORDERED: DEXTROSE 5%/LACTATED RINGERS 1,000 ML IV ONE (15:00)
[2021-12-11] MEDS ORDERED: Vancomycin IV 1 GM in SODIUM CHLORIDE 0.9% 250ML 250 ML IV ONE (15:15)
[2021-12-11] MEDS ORDERED: DEXTROSE 50% SYRINGE 50 ML IV PRN (16:45)
[2021-12-11] MEDS ORDERED: ONDANSETRON HCL INJ 2MG/ML 2ML 2 MG/ML VIAL IV PRN (16:45)
[2021-12-11] MEDS: SODIUM CHLORIDE 0.9% 1000ML 1,000 ML IV SCH (17:12)
[2021-12-11 19:00] VITALS: BP 112/55
[2021-12-11 20:03] VITALS: BP 128/62
[2021-12-11] MEDS: INSULIN LISPRO 100 UNIT/1 ML 3ML VIAL SQ SCH (21:00)
[2021-12-11] MEDS: FAMOTIDINE 20 MG/2 ML VIAL IV SCH (21:04)
[2021-12-11] MEDS: PIPERACILLIN/TAZOBACTAM 3.375 GM in SODIUM CHLORIDE 0.9% 50ML 50 ML IV SCH (21:04)
[2021-12-11 21:21] LABS: CREATINE KINASE MB 2.2 ng/mL (0-5.0)
[2021-12-11] MEDS: HYDROCODONE/APAP 10MG-325MG TAB PO PRN (21:45)
[2021-12-12] VITALS (10 sets, daily range): BP systolic 129–136; BP diastolic 59–72
[2021-12-12] MEDS: PIPERACILLIN/TAZOBACTAM 3.375 GM in SODIUM CHLORIDE 0.9% 50ML 50 ML IV SCH ×4 (02:47→20:31)
[2021-12-12] MEDS: Vancomycin IV 1 GM in SODIUM CHLORIDE 0.9% 250ML 250 ML IV SCH ×2 (04:00→16:32)
[2021-12-12 05:14] LABS: BASOPHILS % 0.2 % (0.0-1.0); EOSINOPHILS # (AUTO) 0.2 (0.0-0.4); EOSINOPHILS % 1.5 % (0.0-6.0); LYMPHOCYTES # (AUTO) 3.1 (1.0-3.2); MEAN CORPUSCULAR HEMOGLOBIN 22.9 pg (28-32); MEAN CORPUSCULAR HGB CONC 29.6 g/dL (31-35); MEAN CORPUSCULAR VOLUME 77.4 fL (81-99); MONOCYTES # (AUTO) 0.7 (0.2-0.8); NEUTROPHILS # (AUTO) 6.5 (2.1-6.9); NEUTROPHILS % 61.7 % (38.7-80.0); PLATELET COUNT 575 x10e3/uL (140-360); RED BLOOD COUNT 3.36 x10e6/uL (3.6-5.1); RED CELL DISTRIBUTION WIDTH 17.2 % (11.7-14.4)
[2021-12-12 05:36] LABS: ALBUMIN/GLOBULIN RATIO 0.5 (0.8-2.0); ANION GAP 9.8 mmol/L (8-16); CALCIUM 7.8 mg/dL (8.4-10.2); CHOL/HDL RATIO 4.5 (3.0-3.6); CREATININE, SERUM 0.92 mg/dL (0.57-1.11); POTASSIUM 3.8 mmol/L (3.5-5.1)
[2021-12-12 05:57] LABS: CREATINE KINASE MB 1.3 ng/mL (0-5.0)
[2021-12-12] MEDS: HYDROCODONE/APAP 10MG-325MG TAB PO PRN (06:00)
[2021-12-12 06:05] LABS: HEMOGLOBIN 7.7 g/dL (12.0-16.0)
[2021-12-12] MEDS: SODIUM CHLORIDE 0.9% 1000ML 1,000 ML IV SCH (06:32)
[2021-12-12] MEDS: INSULIN LISPRO 100 UNIT/1 ML 3ML VIAL SQ SCH ×4 (07:30→20:30)
[2021-12-12] MEDS: FAMOTIDINE 20 MG/2 ML VIAL IV SCH ×2 (08:23→20:31)
[2021-12-12] MEDS ORDERED: HYDRALAZINE HCL 20 MG/ML VIAL IV PRN (15:15)
[2021-12-12] MEDS ORDERED: LORAZEPAM 0.5 MG TAB PO ONE (22:00)
[2021-12-12] MEDS: DULOXETINE HCL 30 MG DELAYED RELEASE PO SCH (22:13)
[2021-12-12] MEDS ORDERED: ACETAMINOPHEN 325 MG TAB PO PRN (23:00)
[2021-12-13] VITALS (7 sets, daily range): BP systolic 122–140; BP diastolic 59–79
[2021-12-13] MEDS: PIPERACILLIN/TAZOBACTAM 3.375 GM in SODIUM CHLORIDE 0.9% 50ML 50 ML IV SCH ×4 (02:31→20:59)
[2021-12-13] MEDS: Vancomycin IV 1 GM in SODIUM CHLORIDE 0.9% 250ML 250 ML IV SCH ×2 (03:22→16:25)
[2021-12-13 05:31] LABS: BASOPHILS % 0.4 % (0.0-1.0); EOSINOPHILS # (AUTO) 0.3 (0.0-0.4); EOSINOPHILS % 2.2 % (0.0-6.0); HEMATOCRIT 28.5 % (34.2-44.1); HEMOGLOBIN 8.6 g/dL (12.0-16.0); LYMPHOCYTES # (AUTO) 3.7 (1.0-3.2); LYMPHOCYTES % 32.2 % (18.0-39.1); MEAN CORPUSCULAR HEMOGLOBIN 23.1 pg (28-32); MEAN CORPUSCULAR HGB CONC 30.2 g/dL (31-35); MEAN CORPUSCULAR VOLUME 76.6 fL (81-99); MONOCYTES # (AUTO) 0.9 (0.2-0.8); MONOCYTES % 7.8 % (4.4-11.3); NEUTROPHILS # (AUTO) 6.4 (2.1-6.9); NEUTROPHILS % 56.4 % (38.7-80.0); PLATELET COUNT 537 x10e3/uL (140-360); RED BLOOD COUNT 3.72 x10e6/uL (3.6-5.1); RED CELL DISTRIBUTION WIDTH 17.1 % (11.7-14.4)
[2021-12-13 06:01] LABS: ALBUMIN 2.1 g/dL (3.5-5.0); ALBUMIN/GLOBULIN RATIO 0.5 (0.8-2.0); ANION GAP 11.5 mmol/L (8-16); CREATININE, SERUM 0.97 mg/dL (0.57-1.11); POTASSIUM 3.5 mmol/L (3.5-5.1)
[2021-12-13 06:23] LABS: CHOL/HDL RATIO 4.3 (3.0-3.6)
[2021-12-13 06:46] LABS: THYROID STIMULATING HORMONE 1.778 uIU/mL (0.350-4.940)
[2021-12-13 07:32] LABS: EOSINOPHILS % (MANUAL) 3 % (0-7); LYMPHOCYTES % (MANUAL) 35 % (19-48); MONOCYTES % (MANUAL) 2 % (3.4-9.0); NEUTROPHILS % (MANUAL) 60 % (40-74)
[2021-12-13 07:33] LABS: ANISOCYTOSIS SLIGHT; HYPOCHROMASIA SLIGHT; PLATELET ESTIMATE ADEQUATE; PLATELET MORPHOLOGY COMMENT NORMAL; RBC MORPHOLOGY COMMENT NORMAL
[2021-12-13] MEDS: DULOXETINE HCL 30 MG DELAYED RELEASE PO SCH ×2 (08:42→16:32)
[2021-12-13] MEDS: FAMOTIDINE 20 MG/2 ML VIAL IV SCH (08:42)
[2021-12-13] MEDS: INSULIN LISPRO 100 UNIT/1 ML 3ML VIAL SQ SCH ×4 (08:51→21:03)
[2021-12-13] MEDS: HYDROCODONE/APAP 10MG-325MG TAB PO PRN (09:11)
[2021-12-13] MEDS ORDERED: SODIUM CHLORIDE 0.9% 250ML 250 ML ONE (09:15)
[2021-12-13] MEDS ORDERED: ONDANSETRON HCL 4 MG ORAL DISINTEGRATING TAB PO PRN (11:00)
[2021-12-13] MEDS: FAMOTIDINE 20 MG TAB PO SCH (16:25)
[2021-12-14] VITALS (9 sets, daily range): BP systolic 95–160; BP diastolic 56–84
[2021-12-14] MEDS: HYDROCODONE/APAP 10MG-325MG TAB PO PRN ×3 (00:45→18:28)
[2021-12-14] MEDS: PIPERACILLIN/TAZOBACTAM 3.375 GM in SODIUM CHLORIDE 0.9% 50ML 50 ML IV SCH ×4 (03:46→21:36)
[2021-12-14] MEDS: Vancomycin IV 1 GM in SODIUM CHLORIDE 0.9% 250ML 250 ML IV SCH ×2 (04:48→16:46)
[2021-12-14 05:39] LABS: BASOPHILS % 0.4 % (0.0-1.0); EOSINOPHILS # (AUTO) 0.2 (0.0-0.4); EOSINOPHILS % 1.5 % (0.0-6.0); HEMATOCRIT 30.4 % (34.2-44.1); HEMOGLOBIN 8.9 g/dL (12.0-16.0); LYMPHOCYTES # (AUTO) 3.1 (1.0-3.2); LYMPHOCYTES % 31.4 % (18.0-39.1); MEAN CORPUSCULAR HEMOGLOBIN 22.9 pg (28-32); MEAN CORPUSCULAR HGB CONC 29.3 g/dL (31-35); MEAN CORPUSCULAR VOLUME 78.1 fL (81-99); MONOCYTES # (AUTO) 0.9 (0.2-0.8); MONOCYTES % 8.8 % (4.4-11.3); NEUTROPHILS # (AUTO) 5.7 (2.1-6.9); NEUTROPHILS % 57.3 % (38.7-80.0); PLATELET COUNT 531 x10e3/uL (140-360); RED BLOOD COUNT 3.89 x10e6/uL (3.6-5.1); RED CELL DISTRIBUTION WIDTH 17.2 % (11.7-14.4)
[2021-12-14 06:04] LABS: ALBUMIN 2.2 g/dL (3.5-5.0); ALBUMIN/GLOBULIN RATIO 0.5 (0.8-2.0); ANION GAP 10.9 mmol/L (8-16); CALCIUM 8.4 mg/dL (8.4-10.2); CREATININE, SERUM 0.97 mg/dL (0.57-1.11); POTASSIUM 3.9 mmol/L (3.5-5.1)
[2021-12-14] MEDS: FAMOTIDINE 20 MG TAB PO SCH ×2 (07:30→16:46)
[2021-12-14] MEDS: DULOXETINE HCL 30 MG DELAYED RELEASE PO SCH ×2 (09:00→16:47)
[2021-12-14] MEDS: INSULIN LISPRO 100 UNIT/1 ML 3ML VIAL SQ SCH ×4 (09:22→21:50)
[2021-12-14] MEDS ORDERED: DEXAMETHASONE SOD PHOS INJ 4 MG/ML SDV ONE ×2 (11:21→11:42)
[2021-12-14] MEDS ORDERED: BUPIVACAINE HCL 0.5% INJ 30 ML VIAL INJ ONE (11:21)
[2021-12-14] MEDS ORDERED: POVIDONE IODINE 0.05% 0.05 % ML PO ONE (11:42)
[2021-12-14] MEDS ORDERED: SEVOFLURANE INHAL SOLN 250 ML PEN BTL ONE (11:42)
[2021-12-14] MEDS ORDERED: LIDOCAINE HCL 2% LOCAL INJ 5 ML SDV VIAL INJ ONE (11:42)
[2021-12-14] MEDS ORDERED: EPHEDRINE SULFATE INJ 50 MG/ML VIAL ONE (11:42)
[2021-12-14] MEDS ORDERED: PROPOFOL IV EMULSION 10 MG/ML 20 ML VIAL ONE (11:42)
[2021-12-14] MEDS ORDERED: ONDANSETRON HCL INJ 2MG/ML 2ML 2 MG/ML VIAL ONE (11:42)
[2021-12-14] MEDS ORDERED: FENTANYL CITRATE/PF 100MCG/2 ML INJ ONE (12:20)
[2021-12-14] MEDS ORDERED: MIDAZOLAM HCL 2 MG/2 ML VIAL ONE (12:20)
[2021-12-14] MEDS ORDERED: INSULIN LISPRO 100 UNIT/1 ML 3ML VIAL SQ SCH (21:45)
[2021-12-15] VITALS (7 sets, daily range): BP systolic 121–143; BP diastolic 62–78
[2021-12-15] MEDS: HYDROCODONE/APAP 10MG-325MG TAB PO PRN ×3 (00:54→19:42)
[2021-12-15] MEDS: PIPERACILLIN/TAZOBACTAM 3.375 GM in SODIUM CHLORIDE 0.9% 50ML 50 ML IV SCH ×4 (02:03→20:43)
[2021-12-15] MEDS: Vancomycin IV 1 GM in SODIUM CHLORIDE 0.9% 250ML 250 ML IV SCH ×2 (03:00→16:00)
[2021-12-15 05:35] LABS: BASOPHILS % 0.2 % (0.0-1.0); EOSINOPHILS % 0.1 % (0.0-6.0); HEMATOCRIT 27.8 % (34.2-44.1); HEMOGLOBIN 8.3 g/dL (12.0-16.0); LYMPHOCYTES # (AUTO) 2.6 (1.0-3.2); LYMPHOCYTES % 16.8 % (18.0-39.1); MEAN CORPUSCULAR HEMOGLOBIN 22.9 pg (28-32); MEAN CORPUSCULAR HGB CONC 29.9 g/dL (31-35); MEAN CORPUSCULAR VOLUME 76.8 fL (81-99); MONOCYTES % 6.9 % (4.4-11.3); NEUTROPHILS # (AUTO) 11.4 (2.1-6.9); NEUTROPHILS % 75.3 % (38.7-80.0); PLATELET COUNT 513 x10e3/uL (140-360); RED BLOOD COUNT 3.62 x10e6/uL (3.6-5.1); RED CELL DISTRIBUTION WIDTH 17.5 % (11.7-14.4)
[2021-12-15 05:50] LABS: ALBUMIN 2.3 g/dL (3.5-5.0); ALBUMIN/GLOBULIN RATIO 0.5 (0.8-2.0); ANION GAP 15.2 mmol/L (8-16); CALCIUM 8.2 mg/dL (8.4-10.2); CREATININE, SERUM 1.13 mg/dL (0.57-1.11); POTASSIUM 4.2 mmol/L (3.5-5.1)
[2021-12-15] MEDS ORDERED: INSULIN LISPRO 100 UNIT/1 ML 3ML VIAL SQ STA (05:58)
[2021-12-15] MEDS: INSULIN LISPRO 100 UNIT/1 ML 3ML VIAL SQ SCH ×4 (07:30→21:30)
[2021-12-15] MEDS: FAMOTIDINE 20 MG TAB PO SCH ×2 (08:30→17:00)
[2021-12-15] MEDS: DULOXETINE HCL 30 MG DELAYED RELEASE PO SCH ×2 (09:52→17:28)
[2021-12-15] MEDS: TRAZODONE HCL 50 MG TAB PO SCH (20:43)
[2021-12-15] MEDS ORDERED: TRAZODONE HCL 50 MG TAB PO ONE (21:00)
[2021-12-15] MEDS: INSULIN GLARGINE 100 UNITS/ML VIAL SQ SCH (21:30)
[2021-12-16] VITALS: BP 117/64
[2021-12-16] MEDS: PIPERACILLIN/TAZOBACTAM 3.375 GM in SODIUM CHLORIDE 0.9% 50ML 50 ML IV SCH ×4 (02:40→20:17)
[2021-12-16] MEDS: Vancomycin IV 1 GM in SODIUM CHLORIDE 0.9% 250ML 250 ML IV SCH ×2 (03:13→16:30)
[2021-12-16 04:00] VITALS: BP 119/66
[2021-12-16 07:14] LABS: BASOPHILS # (AUTO) 0.1 (0.0-0.1); BASOPHILS % 0.5 % (0.0-1.0); EOSINOPHILS # (AUTO) 0.2 (0.0-0.4); EOSINOPHILS % 2.2 % (0.0-6.0); HEMATOCRIT 28.8 % (34.2-44.1); HEMOGLOBIN 8.5 g/dL (12.0-16.0); LYMPHOCYTES # (AUTO) 3.9 (1.0-3.2); MEAN CORPUSCULAR HGB CONC 29.5 g/dL (31-35); MONOCYTES # (AUTO) 0.9 (0.2-0.8); MONOCYTES % 9.1 % (4.4-11.3); NEUTROPHILS # (AUTO) 5.1 (2.1-6.9); NEUTROPHILS % 49.6 % (38.7-80.0); PLATELET COUNT 440 x10e3/uL (140-360); RED BLOOD COUNT 3.69 x10e6/uL (3.6-5.1); RED CELL DISTRIBUTION WIDTH 17.3 % (11.7-14.4)
[2021-12-16] MEDS: INSULIN LISPRO 100 UNIT/1 ML 3ML VIAL SQ SCH ×4 (07:30→20:20)
[2021-12-16 07:39] LABS: ALBUMIN/GLOBULIN RATIO 0.5 (0.8-2.0); ANION GAP 10.8 mmol/L (8-16); CALCIUM 8.2 mg/dL (8.4-10.2); CREATININE, SERUM 0.93 mg/dL (0.57-1.11); POTASSIUM 3.8 mmol/L (3.5-5.1)
[2021-12-16] MEDS: FAMOTIDINE 20 MG TAB PO SCH ×2 (08:00→16:43)
[2021-12-16] MEDS: HYDROCODONE/APAP 10MG-325MG TAB PO PRN ×2 (08:35→16:30)
[2021-12-16] MEDS: DULOXETINE HCL 30 MG DELAYED RELEASE PO SCH ×2 (09:05→17:27)
[2021-12-16 09:14] VITALS: BP 140/76
[2021-12-16 11:51] LABS: EOSINOPHILS % (MANUAL) 1 % (0-7); LYMPHOCYTES % (MANUAL) 26 % (19-48); MONOCYTES % (MANUAL) 3 % (3.4-9.0); NEUTROPHILS % (MANUAL) 69 % (40-74); PLATELET ESTIMATE ADEQUATE; PLATELET MORPHOLOGY COMMENT NORMAL; RBC MORPHOLOGY COMMENT NORMAL
[2021-12-16 12:21] VITALS: BP 106/53
[2021-12-16 17:11] VITALS: BP 98/50
[2021-12-16 20:00] VITALS: BP 135/68
[2021-12-16] MEDS: TRAZODONE HCL 50 MG TAB PO SCH (20:17)
[2021-12-16] MEDS: INSULIN GLARGINE 100 UNITS/ML VIAL SQ SCH (20:20)
[2021-12-17] VITALS: BP 126/66
[2021-12-17] MEDS: PIPERACILLIN/TAZOBACTAM 3.375 GM in SODIUM CHLORIDE 0.9% 50ML 50 ML IV SCH ×2 (02:58→09:06)
[2021-12-17 04:00] VITALS: BP 141/70
[2021-12-17] MEDS: Vancomycin IV 1 GM in SODIUM CHLORIDE 0.9% 250ML 250 ML IV SCH (04:00)
[2021-12-17] MEDS: INSULIN LISPRO 100 UNIT/1 ML 3ML VIAL SQ SCH (07:30)
[2021-12-17 07:52] VITALS: BP 164/88
[2021-12-17] MEDS: FAMOTIDINE 20 MG TAB PO SCH (07:58)
[2021-12-17] MEDS: DULOXETINE HCL 30 MG DELAYED RELEASE PO SCH (09:06)
[2021-12-17] MEDS ORDERED: VITAMIN C500 MG PO (09:16)
[2021-12-17] MEDS ORDERED: RIFAMPIN300 MG PO (09:16)
[2021-12-17] MEDS ORDERED: DOXYCYCLINE HY100 MG PO (09:16)
[2021-12-17] MEDS ORDERED: ZINC SULFATE50 MG PO (09:21)
[2021-12-17] MEDS ORDERED: ACETAMINOPHEN325 M1 PO (09:21)
[2021-12-17] MEDS ORDERED: ZINC SULFATE 220 MG CAP PO SCH (09:30)
[2021-12-17] MEDS ORDERED: ASCORBIC ACID 500 MG TAB PO SCH (09:30)
[2021-12-17 09:33] VITALS: BP 164/88
[2021-12-17] MEDS ORDERED: OS-CAL 500+D T1 EACH PO (10:04)
[2021-12-17] MEDS ORDERED: MAGNESIUM OXID400 MG PO (10:04)
[2021-12-18] MEDS ORDERED: ZINC SULFATE 220 MG CAP PO SCH (09:00)
== END 2021-12-17 10:50 | disposition home or self-care (01) | DRG 853 ==
LOC: ER 13:43 → ERHOLD 16:50 → MED/SURG2 18:43
PROVIDERS: ADMIT Internal Medicine; ATTEND Internal Medicine
PROC: 0Y6N0ZC Detachment at Left Foot, Partial 3rd Ray, Open Approach (ICD-10-PCS; principal; 2021-12-14 12:30)
PROC: 0Y6N0ZD Detachment at Left Foot, Partial 4th Ray, Open Approach (ICD-10-PCS; principal; 2021-12-14 12:30)
PROC: 0Y6N0ZB Detachment at Left Foot, Partial 2nd Ray, Open Approach (ICD-10-PCS; principal; 2021-12-14 12:30)
PROC: 0Y6N0ZF Detachment at Left Foot, Partial 5th Ray, Open Approach (ICD-10-PCS; principal; 2021-12-14 12:30)
DX: A41.02 Sepsis due to Methicillin resistant Staphylococcus aureus (principal); G93.41 Metabolic encephalopathy; M86.672 Other chronic osteomyelitis, left ankle and foot; E10.649 Type 1 diabetes mellitus with hypoglycemia without coma; R65.20 Severe sepsis without septic shock; B19.20 Unspecified viral hepatitis C without hepatic coma; I10 Essential (primary) hypertension; E10.69 Type 1 diabetes mellitus with other specified complication; F41.9 Anxiety disorder, unspecified; F32.A Depression, unspecified; D64.9 Anemia, unspecified; F14.10 Cocaine abuse, uncomplicated; F15.10 Other stimulant abuse, uncomplicated; Z91.14 Patient's other noncompliance with medication regimen; Z20.822 Contact with and (suspected) exposure to COVID-19; E10.65 Type 1 diabetes mellitus with hyperglycemia; E10.42 Type 1 diabetes mellitus with diabetic polyneuropathy; G89.29 Other chronic pain; Z88.1 Allergy status to other antibiotic agents; Z88.2 Allergy status to sulfonamides; Z87.891 Personal history of nicotine dependence
CPT/HCPCS: 36415; 70450; 71045; 72125; 80053; 80061; 80202; 80307; 80320; 80329; 81001; 82140; 82550; 82553; 82948; 83036; 83605; 83735; 83880; 84443; 84484; 85025; 85610; 85730; 87040; 87071; 87086; 87186; 87205; 88302; 88307; 88311; 93005; 93925; 94799; 99251; 99284; J1100; J1815; J2001; J2250; J2405; J2543; J3010; J3370; J7030; J7050; J7799; U0002

== ENCOUNTER 2022-03-18 20:44 | Emergency (ER) | payer OTHER ==
[~2022-03-18] VITALS: Ht 160 cm; Wt 68.5 kg
[~2022-03-18 20:44] MED LIST changes: +ACETAMINOPHEN325 M1 PO; +OS-CAL 500+D T1 EACH PO; +RIFAMPIN300 MG PO; +VITAMIN C500 MG PO; +ZINC SULFATE50 MG PO
[2022-03-18 21:06] LABS: BASOPHILS # (AUTO) 0.1 (0.0-0.1); BASOPHILS % 0.7 % (0.0-1.0); EOSINOPHILS # (AUTO) 0.3 (0.0-0.4); HEMATOCRIT 46.6 % (34.2-44.1); HEMOGLOBIN 14.4 g/dL (12.0-16.0); LYMPHOCYTES # (AUTO) 2.8 (1.0-3.2); LYMPHOCYTES % 40.7 % (18.0-39.1); MEAN CORPUSCULAR HGB CONC 30.9 g/dL (31-35); MEAN CORPUSCULAR VOLUME 84.1 fL (81-99); MONOCYTES # (AUTO) 0.5 (0.2-0.8); MONOCYTES % 7.8 % (4.4-11.3); NEUTROPHILS # (AUTO) 3.1 (2.1-6.9); NEUTROPHILS % 45.7 % (38.7-80.0); PLATELET COUNT 323 x10e3/uL (140-360); RED BLOOD COUNT 5.54 x10e6/uL (3.6-5.1); RED CELL DISTRIBUTION WIDTH 16.5 % (11.7-14.4)
[2022-03-18 21:14] LABS: INR 0.86; PROTHROMBIN TIME 12.5 seconds (11.9-14.5)
[2022-03-18 21:15] LABS: PARTIAL THROMBOPLASTIN TIME 25.2 seconds (23.8-35.5)
[2022-03-18 21:24] LABS: ALBUMIN 3.6 g/dL (3.5-5.0); ALBUMIN/GLOBULIN RATIO 0.7 (0.8-2.0); ANION GAP 15.5 mmol/L (8-16); CALCIUM 10.2 mg/dL (8.4-10.2); CREATININE, SERUM 0.95 mg/dL (0.57-1.11); POTASSIUM 3.5 mmol/L (3.5-5.1)
[2022-03-18 21:30] LABS: CREATINE KINASE MB 2.1 ng/mL (0-5.0)
[2022-03-18 21:33] LABS: CLARITY,URINE HAZY (CLEAR); COLOR,URINE YELLOW (YELLOW); KETONES,URINE NEGATIVE (NEGATIVE); LEUKOCYTE ESTERASE ,URINE TRACE (NEGATIVE); NITRITE,URINE NEGATIVE (NEGATIVE); PROTEIN,URINE DIPSTICK NEGATIVE (NEGATIVE); URINE UROBILINOGEN 0.2 mg/dL (0.2 - 1)
[2022-03-18 21:37] LABS: BACTERIA,URINE FEW /HPF; EPITHELIAL CELLS,URINE MODERATE /LPF
== END 2022-03-19 01:14 | disposition home or self-care (01) ==
LOC: ER 20:48
DX: E11.649 Type 2 diabetes mellitus with hypoglycemia without coma (principal); I10 Essential (primary) hypertension; Z88.2 Allergy status to sulfonamides; Z88.1 Allergy status to other antibiotic agents; Z88.8 Allergy status to other drugs, medicaments and biological substances; Z79.4 Long term (current) use of insulin; Z79.899 Other long term (current) drug therapy; Z86.19 Personal history of other infectious and parasitic diseases
CPT/HCPCS: 36415; 70450; 71045; 80053; 81001; 82550; 82553; 82948; 83880; 84484; 85025; 85610; 85730; 93005; 99284

== ENCOUNTER 2022-04-08 14:54 | Emergency (ER) | payer OTHER ==
[~2022-04-08] VITALS: Ht 160 cm; Wt 68.5 kg
[2022-04-08] MEDS ORDERED: GLUCAGON FOR INJ 1 MG VIAL ONE (15:12)
[2022-04-08] MEDS ORDERED: DEXTROSE 5%/0.45% SOD CHL 1,000 ML IV ONE (15:15)
[2022-04-08 15:33] LABS: BASOPHILS % 0.3 % (0.0-1.0); EOSINOPHILS # (AUTO) 0.2 (0.0-0.4); EOSINOPHILS % 2.7 % (0.0-6.0); HEMATOCRIT 48.9 % (34.2-44.1); HEMOGLOBIN 14.8 g/dL (12.0-16.0); LYMPHOCYTES # (AUTO) 3.5 (1.0-3.2); LYMPHOCYTES % 44.7 % (18.0-39.1); MEAN CORPUSCULAR HEMOGLOBIN 26.6 pg (28-32); MEAN CORPUSCULAR HGB CONC 30.3 g/dL (31-35); MEAN CORPUSCULAR VOLUME 87.8 fL (81-99); MONOCYTES # (AUTO) 0.4 (0.2-0.8); MONOCYTES % 5.2 % (4.4-11.3); NEUTROPHILS # (AUTO) 3.7 (2.1-6.9); NEUTROPHILS % 46.7 % (38.7-80.0); PLATELET COUNT 190 x10e3/uL (140-360); RED BLOOD COUNT 5.57 x10e6/uL (3.6-5.1); RED CELL DISTRIBUTION WIDTH 15.9 % (11.7-14.4)
[2022-04-08 15:48] LABS: ALBUMIN 3.6 g/dL (3.5-5.0); ALBUMIN/GLOBULIN RATIO 0.7 (0.8-2.0); ANION GAP 15.4 mmol/L (8-16); CALCIUM 9.6 mg/dL (8.4-10.2); CREATININE, SERUM 0.84 mg/dL (0.57-1.11); MAGNESIUM 1.8 MG/DL (1.3-2.1); POTASSIUM 3.4 mmol/L (3.5-5.1)
[2022-04-08] MEDS ORDERED: DEXTROSE 50% SYRINGE 50 ML IV STA (15:54)
[2022-04-08 15:55] LABS: CREATINE KINASE MB 2.3 ng/mL (0-5.0)
[2022-04-08 16:05] LABS: INR 0.85; PROTHROMBIN TIME 12.4 seconds (11.9-14.5)
[2022-04-08 16:17] LABS: AMPHETAMINES SCREEN,URINE NEGATIVE (NEGATIVE); BENZODIAZEPINES SCREEN,URINE NEGATIVE (NEGATIVE); COLOR,URINE YELLOW (YELLOW); PHENCYCLIDINE SCREEN,URINE NEGATIVE (NEGATIVE)
[2022-04-08 16:18] LABS: CLARITY,URINE CLEAR (CLEAR); KETONES,URINE NEGATIVE (NEGATIVE); LEUKOCYTE ESTERASE ,URINE NEGATIVE (NEGATIVE); NITRITE,URINE POSITIVE (NEGATIVE); PROTEIN,URINE DIPSTICK NEGATIVE (NEGATIVE); URINE UROBILINOGEN 0.2 mg/dL (0.2 - 1)
[2022-04-08 16:36] LABS: BACTERIA,URINE MANY /HPF; RBC,URINE 0-5 /HPF (0-5)
[2022-04-08] MEDS ORDERED: SODIUM CHLORIDE 0.9% 1000ML 1,000 ML IV SCH (16:45)
[2022-04-08 18:50] VITALS: BP 116/64
== END 2022-04-08 19:50 | disposition home or self-care (01) ==
LOC: ER 15:12
DX: E11.65 Type 2 diabetes mellitus with hyperglycemia (principal); I10 Essential (primary) hypertension; B19.20 Unspecified viral hepatitis C without hepatic coma; F14.10 Cocaine abuse, uncomplicated; F11.10 Opioid abuse, uncomplicated
CPT/HCPCS: 36415; 71045; 80053; 80307; 81001; 82550; 82553; 82948; 83735; 83880; 84484; 85025; 85610; 85730; 87086; 87186; 93005; 99284; J1610; J7030; J7799

== ENCOUNTER → 2022-07-12 | Day surgery (SDC) | payer OTHER ==
[2022-07-09 14:58] LABS: HEMATOCRIT 33.6 % (34.2-44.1); HEMOGLOBIN 10.5 g/dL (12.0-16.0)
[2022-07-09 15:12] LABS: ANION GAP 15.7 mmol/L (8-16); CALCIUM 8.8 mg/dL (8.4-10.2); CREATININE, SERUM 1.38 mg/dL (0.57-1.11); POTASSIUM 3.7 mmol/L (3.5-5.1)
[~2022-07-12] MED LIST changes: +BALANCED SALT SOLN (OPTH) 15 ML BTL IO ONE; +BUPIVACAINE HC 0.75% PF 10ML VIAL INJ ONE; +CYCLOPENTOLATE HCL 2% OPTH SOLN 2 ML BTL OP ONE; +EPINEPHRINE HCL 1:1000 1ML 1 MG/ML AMP ONE; +HYDROXYZIN10 MG/5 ML PO; +MOXIFLOXACIN HCL(OPTH) 3 ML BTL ONE; +PHENYLEPHRINE HCL 2 ML DROPS ONE; +POVIDONE IODINE 5% (OPTH) 30 ML BTL ONE; +SODIUM CHLORIDE 0.45% 1,000 ML ONE; +TOBRAMYCIN/DEXAMETHASONE(OPTH) 3.5 GM TUBE ONE
[2022-07-12 13:15] VITALS: BP 130/58
== END | disposition home or self-care (01) ==
LOC: OR 10:07
PROVIDERS: ATTEND Ophthalmology
DX: H25.11 Age-related nuclear cataract, right eye (principal); E11.9 Type 2 diabetes mellitus without complications; F41.9 Anxiety disorder, unspecified; F32.A Depression, unspecified; F17.210 Nicotine dependence, cigarettes, uncomplicated; Z88.1 Allergy status to other antibiotic agents; Z88.2 Allergy status to sulfonamides; Z88.8 Allergy status to other drugs, medicaments and biological substances; Z01.810 Encounter for preprocedural cardiovascular examination; Z01.812 Encounter for preprocedural laboratory examination; Z79.4 Long term (current) use of insulin; Z86.19 Personal history of other infectious and parasitic diseases; Z86.11 Personal history of tuberculosis
CPT/HCPCS: 36415 ×2; 66984; 80048; 82948; 85014; 85018; 93005; J0171

== ENCOUNTER → 2022-11-15 | Outpatient (CLI) | payer OTHER ==
[~2022-11-15] MED LIST changes: -CYCLOPENTOLATE HCL 2% OPTH SOLN 2 ML BTL OP ONE; +LIDOCAINE HCL-PF 4% 40 MG/1 ML 5ML AMP ONE; -MOXIFLOXACIN HCL(OPTH) 3 ML BTL ONE; -PHENYLEPHRINE HCL 2 ML DROPS ONE; +PIROXICAM20 MG PO; -SODIUM CHLORIDE 0.45% 1,000 ML ONE
== END | disposition home or self-care (01) ==
LOC: EDSTATUS 08:00 → OR 09:52 → LAB 09:52
PROVIDERS: ATTEND Ophthalmology
DX: H25.12 Age-related nuclear cataract, left eye (principal); Z01.810 Encounter for preprocedural cardiovascular examination; Z53.9 Procedure and treatment not carried out, unspecified reason
CPT/HCPCS: 93005; J0171

== ENCOUNTER → 2023-01-10 | Day surgery (SDC) | payer OTHER ==
[~2023-01-10] MED LIST changes: +CYCLOPENTOLATE HCL 2% OPTH SOLN 2 ML BTL OP ONE; +EPHEDRINE SULFATE INJ 50 MG/ML VIAL ONE; +LACTATED RINGER'S 1,000 ML ONE; +LIDOCAINE 2%/ EPINEPHRINE 20ML MDV ONE; +LIDOCAINE HCL 2% LOCAL INJ 5 ML SDV VIAL INJ ONE; +ONDANSETRON HCL INJ 2MG/ML 2ML 2 MG/ML VIAL ONE; +PHENYLEPHRINE HCL 1% 10 MG/ML VIAL ONE; +PHENYLEPHRINE HCL 2 ML DROPS ONE; +POVIDONE IODINE 0.05% 0.05 % ML PO ONE; +PROPOFOL IV EMULSION 10 MG/ML 20 ML VIAL ONE; +SEVOFLURANE INHAL SOLN 250 ML PEN BTL ONE
[2023-01-10] MEDS: FENTANYL CITRATE/PF 100MCG/2 ML INJ ONE ×2 (10:59→11:20)
[2023-01-10 13:05] VITALS: BP 136/65
== END | disposition home or self-care (01) ==
LOC: OR 09:11
PROVIDERS: ATTEND Ophthalmology
DX: H25.12 Age-related nuclear cataract, left eye (principal); E11.9 Type 2 diabetes mellitus without complications; Z88.1 Allergy status to other antibiotic agents; Z88.2 Allergy status to sulfonamides; Z88.8 Allergy status to other drugs, medicaments and biological substances; Z79.4 Long term (current) use of insulin; Z86.19 Personal history of other infectious and parasitic diseases
CPT/HCPCS: 36415; 66984; 82948; J0171; J2001; J2370; J2405; J2704; J3010; J7121; V2632

== ENCOUNTER 2024-09-17 03:27 | Emergency (ER) | payer OTHER ==
[~2024-09-17] VITALS: Ht 160 cm; Wt 61.2 kg
[~2024-09-17 03:27] MED LIST changes: -BALANCED SALT SOLN (OPTH) 15 ML BTL IO ONE; -BUPIVACAINE HC 0.75% PF 10ML VIAL INJ ONE; -CYCLOPENTOLATE HCL 2% OPTH SOLN 2 ML BTL OP ONE; -EPHEDRINE SULFATE INJ 50 MG/ML VIAL ONE; -EPINEPHRINE HCL 1:1000 1ML 1 MG/ML AMP ONE; -LACTATED RINGER'S 1,000 ML ONE; -LIDOCAINE 2%/ EPINEPHRINE 20ML MDV ONE; -LIDOCAINE HCL 2% LOCAL INJ 5 ML SDV VIAL INJ ONE; -LIDOCAINE HCL-PF 4% 40 MG/1 ML 5ML AMP ONE; -ONDANSETRON HCL INJ 2MG/ML 2ML 2 MG/ML VIAL ONE; +ONDANSETRON ODT4 MG PO; -PHENYLEPHRINE HCL 1% 10 MG/ML VIAL ONE; -PHENYLEPHRINE HCL 2 ML DROPS ONE; -POVIDONE IODINE 0.05% 0.05 % ML PO ONE; -POVIDONE IODINE 5% (OPTH) 30 ML BTL ONE; -PROPOFOL IV EMULSION 10 MG/ML 20 ML VIAL ONE; -SEVOFLURANE INHAL SOLN 250 ML PEN BTL ONE; -TOBRAMYCIN/DEXAMETHASONE(OPTH) 3.5 GM TUBE ONE
[2024-09-17 03:56] LABS: BASOPHILS % 0.3 % (0.0-1.0); EOSINOPHILS # (AUTO) 0.4 (0.0-0.4); EOSINOPHILS % 3.1 % (0.0-6.0); HEMATOCRIT 40.8 % (34.2-44.1); HEMOGLOBIN 13.2 g/dL (12.0-16.0); LYMPHOCYTES # (AUTO) 2.9 (1.0-3.2); LYMPHOCYTES % 24.8 % (18.0-39.1); MEAN CORPUSCULAR HEMOGLOBIN 29.6 pg (28-32); MEAN CORPUSCULAR HGB CONC 32.4 g/dL (31-35); MEAN CORPUSCULAR VOLUME 91.5 fL (81-99); MONOCYTES # (AUTO) 1.3 (0.2-0.8); MONOCYTES % 11.2 % (4.4-11.3); PLATELET COUNT 308 x10e3/uL (140-360); RED BLOOD COUNT 4.46 x10e6/uL (3.6-5.1); RED CELL DISTRIBUTION WIDTH 13.8 % (11.7-14.4); WHITE BLOOD COUNT 11.63 x10e3/uL (4.8-10.8)
[2024-09-17] MEDS: HALOPERIDOL LACTATE 5 MG/ML VIAL IV ONE (04:07)
[2024-09-17 04:09] LABS: ALBUMIN 3.9 g/dL (3.5-5.0); ALBUMIN/GLOBULIN RATIO 0.8 (0.8-2.0); ANION GAP 20.6 mmol/L (8-16); BILIRUBIN,TOTAL 0.3 mg/dL (0.2-1.2); CALCIUM 9.7 mg/dL (8.4-10.2); CREATININE, SERUM 1.89 mg/dL (0.57-1.11); POTASSIUM 3.6 mmol/L (3.5-5.1); TOTAL PROTEIN 8.9 g/dL (6.5-8.1)
[2024-09-17 04:15] LABS: TROPONIN I 0.076 ng/mL (0-0.300)
[2024-09-17] MEDS: SODIUM CHLORIDE 0.9% 500ML 500 ML IV ONE (04:19)
[2024-09-17 06:12] LABS: TROPONIN I 0.061 ng/mL (0-0.300)
[2024-09-17 06:24] VITALS: TEMP 98.1
[2024-09-17 08:00] VITALS: PULSE 82; RESP 16; O2SAT 97
== END 2024-09-17 08:10 | disposition home or self-care (01) ==
LOC: ER 03:31
DX: R06.02 Shortness of breath (principal); F14.10 Cocaine abuse, uncomplicated; R07.89 Other chest pain; G89.29 Other chronic pain; E11.65 Type 2 diabetes mellitus with hyperglycemia; I50.9 Heart failure, unspecified; I25.2 Old myocardial infarction
CPT/HCPCS: 36415; 71045; 80053; 80320; 82550; 83880; 84484; 85025; 93005; 99284; J1630; J7040